=== PATIENT | male | born 1965 | race Caucasian/White ===

== ENCOUNTER → 2017-07-08 09:01 | Outpatient (CLI) | payer OTHER, SELFPAY ==
[2017-07-08 10:37] LABS: Absolute Lymphocyte Count 1.65 X10^3/ul (0.83-4.51); Absolute Neutrophil Count 2.7 X10^3/uL (2.0-7.7); Basophil# 0.06 X10^3/uL; Eosinophil# 0.83 X10^3/uL; Eosinophils% 14.1 % (0-5); Hematocrit 44.7 % (40-54); Lymphocyte # 1.65 X10^3/ul (4.0); Mean Corp Hgb Conc 33.6 g/gl (32-36); Mean Corpuscular Hgb 30.7 pg (27.0-32.0); Mean Corpuscular Volume 91.4 fL (80-94); Mean Platelet Vol. 10.6 fl (6.2-12.0); Monocyte# 0.65 X10^3/uL; Neutrophil % 45.9 % (47-70); Platelet Count 279 K/mm3 (150-450); RBC Distribution Width CV 13.9 % (11.6-14.6); RBC Distribution Width SD 46.3 fl (35.1-43.9); Red Blood Count 4.89 M/mm3 (4.6-6.2); White Blood Count 5.9 K/mm3 (4.4-11.0)
[2017-07-08 10:38] LABS: POSITIVE COUNT NO; POSITIVE DIFFERENTIAL NO; POSITIVE MORPHOLOGY NO
[2017-07-08 10:57] LABS: AST(SGOT) 16 U/L (15-37); Alanine Aminotransfer ALT/SGPT 24 U/L (16-61); Albumin, Serum 3.5 g/dL (3.2-5.0); Alkaline Phosphatase 92 U/L (45-117); Bilirubin, Direct 0.12 mg/dL (0.00-0.30); Globulin 3.9 g/dL (2.2-4.2); Protein, Total 7.4 g/dL (6.4-8.2)
[2017-07-11 03:07] LABS: QNTFERON TB Ag Minus Nil Value 0 IU/mL (.); QNTFERON TB Ag Value 0.02 IU/mL (.); QNTFERON TB Mitogen Value > 10.00 IU/mL (.); QNTFERON TB Nil Value 0.02 IU/mL (.)
[2017-07-11 11:18] LABS: QNTIFERON TB Gold Negative (Negative)
== END ==
PROVIDERS: Family Provider Family Medicine; PCP Family Medicine; Visit Provider Dermatology
DX: L40.0 Psoriasis vulgaris (principal); L40.8 Other psoriasis; Z79.899 Other long term (current) drug therapy
CPT/HCPCS: 36415; 80076; 85025; 86480

== ENCOUNTER 2017-10-17 06:54 | Day surgery (SDC) | payer OTHER, SELFPAY ==
[2017-10-17] VITALS (7 sets, daily range): BP systolic 107–159; BP diastolic 64–99; PULSE 50–57; RESP 16–18; TEMP 36.3–36.6; O2SAT 96–100; BMI 36.1
--- NOTE | 2017-10-17 07:54 | HP.PCM_ITS ---
Past Medical/Surgical History - Planned Operation Planned Operative Procedure/s: cscope Date of Operative Procedure: 10/17/17 Permit Signed: No S.O.S: No Is This Patient Having a Total Joint: No - Previous Hospitalizations/Surgeries HX Hospitalizations: No HX of Surgeries: tonsillectomy. wisdom teeth Any Problems With Anesthesia: No You/Your Family Experience Fever (Hyperthermia) With Anes: No Cholinesterase deficiency: No - Cardiovascular Hx Chest Pain within Last 2 months: No Hx of Irregular Heartbeat and/or Afib: No Hx Heart Attack: No Hx Congestive Heart Failure: No Hx Rheumatic Fever: No Hx Hypertension: Yes - controlled with meds Hx Internal Defibrillator: No Hx Pacemaker: No Hx Cardiac Catheterization: No Hx Cardiac Surgery/Stents/Etc.: No Hx Stress Test: No HX Edema: No Hx Pain in Legs when Walking/Leg Cramps: No - Respiratory Chronic Cough: No HX of Shortness of Breath: Yes - sob with 2 flights of stairs Hoarseness: No Hx Chronic Obstructive Pulmonary Disease (COPD): No Hx Asthma: No Hx Emphysema: No Hx Sleep Apnea: Yes CPAP: Yes BIPAP: No Hx Oxygen Use at Home: No Hx Respiratory Tract Infection/Cold (presently): No Result (for STOP score): Positive Hx Smoking: Yes Smoking Status: Never smoker - Gastrointestinal Hx Gastroesophageal Reflux: No Hx Gastrointestinal Disorders: No Hx Gastrointestinal Bleed: No Hx Ulcer: No Hx Hiatal Hernia: No Difficulty Chewing/Swallowing: No Recent Onset of Swallowing Problems: No Special diet followed at home: No Hx Unplanned Weight Loss of 20#: No HX Unplanned Weight Gain of 20#: No - Neurological Hx Seizures: No HX Syncope/Blackout Spells/Unconsciousness: No Hx CVA/Stroke: No Hx Transient Ischemic Attacks (TIA): No Hx Multiple Sclerosis: No Hx Parkinson's Disease: No Hx Head/Neck Injury: No Hx Headaches: No Hx Back Injury/Pain: No Recent Onset of Speech Difficulty: No Restless Legs: Yes Does patient have nerve stimulator: No Patient instructed to have device shut off: No Rep notified?: No - Blood Disorder Hx Leukemia: No Bleeding Tendencies: No Hx Deep Vein Thrombosis: No Hx High Cholesterol: No Blood Transmitted Disease: No Hx Hepatitis: No Hx Cirrhosis: No Hx Anemia: No Hx Blood Disorders: No - Genitourinary Hx Renal Disease: No Hx Dialysis: No - Musculoskeletal Hx Arthritis: No Hx Rheumatoid Arthritis: No Hx Gout: No Recent Onset of an Orthopedic Problem: No - Endocrine Hx Diabetes: No Thyroid Disease: No Hx Steroid Therapy: No - Psycho/Social Hx Substance Use: No Hx Alcohol Use: Yes - occ Hx Anxiety: Yes - on med Hx Depression: Yes - on med Mental Illness: No Hx Dementia: No - Miscellaneous Hx Cancer: No Recent Exposure to Contagious Disease: No Active MRSA: No Hx of C-Diff: No Any Loose Teeth: No Additional information pertinent to anesthesia:: psoriasis Allergies No Known Allergies Allergy (Verified 10/15/17 13:13) - Discharge Is Pt Admitted From a Halfway, or a Shelter: No Who Could Help: family After D/C, Where Do you Plan to Go: Return Home - Physical Exam General: Alert, Oriented x3, Cooperative Neck: No JVD Lungs: Normal air movement Cardiovascular: Regular rate, Regular Rhythm Abdomen: Soft, Non Tender, Non-Distended Vital Signs Temp Pulse Resp BP Pulse Ox 97.9 F 52 L 16 159/83 H 98 10/17/17 07:17 10/17/17 07:17 10/17/17 07:17 10/17/17 07:17 10/17/17 07:17 Oxygen Delivery Method Room Air Weight: 252 lb 3.341 oz Body Mass Index (BMI) 36.1 Assessment/Plan 51-year-old male for screening colonoscopy 1. Patient has never had colonoscopy in the past. He reports no abdominal pain or blood in his stool. He has no family history of colon cancer. 2. I explained endoscopy in detail to the patient. I explained the risks including but not limited to stroke or heart attack with anesthesia, perforation of the GI tract, bleeding, infection. I explained that any of these could necessitate further emergency surgery. The patient understands and all questions were answered sufficiently. The patient wishes to proceed with procedure. Luis Rodriguez MD Pager: [facility] [address] [place] [address], [address] [place] [address] Office: Surgery Risks - Colonoscopy Risks Include but are not Limited To: Risks include but are not limited to: Bleeding, perforation requiring further surgery, inability to complete colonoscopy requiring barium enema.
--- NOTE | 2017-10-17 08:18 | PCM.OPRPT ---
Problem List (1) Screen for colon cancer Status: Acute Report of Operation Date of Procedure: 10/17/17 Pre-Operative Diagnosis: Screening for colon cancer Post-Operative Diagnosis: Normal colonoscopy Surgery/Procedure Performed:: Colonoscopy Description of Procedure: The major risks and benefits associated with the procedure were explained to the patient in detail. The patient verbalized understanding and agreement with the same. The patient was brought to the endoscopy suite. After adequate sedation was achieved, the patient was placed in the left lateral decubitus position and a digital rectal exam was performed. This examination was within normal limits. A well-lubricated colonoscope was then inserted into the rectum and advanced under direct visualization to the level of the cecum. The bowel prep was good. The cecum was identified by both visual and anatomic landmarks. A photograph was taken of the end of the cecum. The scope was then fully withdrawn while examining the color, texture, anatomy and integrity of the mucosa from the cecum to the anal canal. The findings were consistent with normal colonic mucosa. Over 6 minutes were taken to examine the colonic mucosa. Upon reaching the rectum the scope was retroflexed to examine the distal rectal vault. The scope was then straightened and was completely retrieved upon exiting the anal canal and the procedure was terminated. The patient was then transferred to the recovery room in stable condition. Recommendations for follow up: 10 years
== END 2017-10-17 09:15 | disposition home or self-care (01) ==
LOC: EN 06:55 → AC 07:36
PROVIDERS: Family Provider Family Medicine; PCP Family Medicine; Visit Provider Surgery
PROC: 0DJD8ZZ Inspection of Lower Intestinal Tract, Via Natural or Artificial Opening Endoscopic (ICD-10-PCS; CPT 45378; principal; 2017-10-17 07:55)
DX: Z12.11 Encounter for screening for malignant neoplasm of colon (principal); I10 Essential (primary) hypertension; G47.30 Sleep apnea, unspecified; G25.81 Restless legs syndrome; F41.9 Anxiety disorder, unspecified; F32.9 Major depressive disorder, single episode, unspecified; Z79.82 Long term (current) use of aspirin; Z79.899 Other long term (current) drug therapy
CPT/HCPCS: 45378; J7120

== ENCOUNTER → 2018-01-10 09:31 | Outpatient (CLI) | payer OTHER, SELFPAY ==
[2018-01-10 10:06] LABS: Absolute Lymphocyte Count 1.48 X10^3/ul (0.83-4.51); Absolute Neutrophil Count 2.8 X10^3/uL (2.0-7.7); Basophil# 0.01 X10^3/uL; Basophil% 0.2 % (0-1); Eosinophil# 0.24 X10^3/uL; Eosinophils% 4.7 % (0-5); Hematocrit 39.3 % (40-54); Hemoglobin 13.3 g/dl (13.0-16.5); Lymphocyte # 1.48 X10^3/ul (4.0); Lymphocyte % 28.7 % (19-41); Mean Corp Hgb Conc 33.8 g/gl (32-36); Mean Corpuscular Hgb 31.4 pg (27.0-32.0); Mean Corpuscular Volume 92.9 fL (80-94); Mean Platelet Vol. 9.4 fl (6.2-12.0); Monocyte# 0.59 X10^3/uL; Monocyte% 11.5 % (0-10); Neutrophil # 2.83 X10^3/uL (2.7-7.7); Neutrophil % 54.9 % (47-70); Platelet Count 262 K/mm3 (150-450); RBC Distribution Width CV 14.3 % (11.6-14.6); Red Blood Count 4.23 M/mm3 (4.6-6.2); White Blood Count 5.2 K/mm3 (4.4-11.0)
[2018-01-10 10:07] LABS: POSITIVE COUNT NO; POSITIVE DIFFERENTIAL NO; POSITIVE MORPHOLOGY NO
[2018-01-10 10:26] LABS: AST(SGOT) 20 U/L (15-37); Alanine Aminotransfer ALT/SGPT 28 U/L (16-61); Albumin, Serum 3.4 g/dL (3.2-5.0); Alkaline Phosphatase 84 U/L (45-117); Bilirubin, Direct 0.15 mg/dL (0.00-0.30); Globulin 3.7 g/dL (2.2-4.2); Protein, Total 7.1 g/dL (6.4-8.2)
== END ==
PROVIDERS: Family Provider Family Medicine; PCP Family Medicine; Referring Provider Dermatology; Visit Provider Dermatology
DX: L40.8 Other psoriasis (principal); L40.0 Psoriasis vulgaris; Z79.899 Other long term (current) drug therapy; L70.2 Acne varioliformis
CPT/HCPCS: 36415; 80076; 85025

== ENCOUNTER 2018-02-26 17:45 | Outpatient (RCR) | payer OTHER, SELFPAY ==
--- NOTE | 2017-07-21 16:50 | MASS.EVAL ---
Massage Therapy Evaluation: INITIAL EVALUATION: DATE: 06/19/17 PT NAME: DANE LEMUS :67 [id number] REFERRING PHYS: DR. 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 facility for a Massotherapy evaluation by Dr. Cholo Mckeon with a diagnosis of back ache. He presents today with symptoms of stabbing pain between the shoulder blades, into the neck. He reports of the pain level at worst 8/10 and at rest a 3/10. 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 Dane rates his health to be in good condition. The patient is currently taking blood pressure, stelaria as medications. Objective: The first treatment consisted of a deep tissue upper body massage. I focused on the upper trapezium, suboccipitals, scalenes, rhomboids, and levator. Trigger point therapy, muscle stripping, myofascial release were performed. Assessment: Muscle tension was very high with no myofascial movement. The most tenderness places were the scalenes, upper trapezium, and rhomboids. I felt there was a moderate release overall. I feel that the patient has had massages in the past and has helped, therefore I feel that Dane would be a great candidate for massotherapy at this time. Plan: The plan of care was reviewed with the patient. The patient is to be seen 1x week for 2 weeks, then as needed on a regular basis for a one hour sessions of massotherapy combined with heat for relaxation and neck and shoulder stretches.
--- NOTE | 2017-07-21 17:08 | MASS.EVAL_ITS ---
Massage Therapy Evaluation: INITIAL EVALUATION: DATE: 06/19/17 PT NAME: DANE LEMUS :66 [id number] REFERRING PHYS: DR. 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 Cholo Mckeon with a diagnosis of back ache. He presents today with symptoms of stabbing pain between the shoulder blades, into the neck. He reports of the pain level at worst 8/10 and at rest a 3/10. 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 Dane rates his health to be in good condition. The patient is currently taking blood pressure, stelaria as medications. Objective: The first treatment consisted of a deep tissue upper body massage. I focused on the upper trapezium, suboccipitals, scalenes, rhomboids, and levator. Trigger point therapy, muscle stripping, myofascial release were performed. Assessment: Muscle tension was very high with no myofascial movement. The most tenderness places were the scalenes, upper trapezium, and rhomboids. I felt there was a moderate release overall. I feel that the patient has had massages in the past and has helped, therefore I feel that Dane would be a great candidate for massotherapy at this time. Plan: The plan of care was reviewed with the patient. The patient is to be seen 1x week for 2 weeks, then as needed on a regular basis for a one hour sessions of massotherapy combined with heat for relaxation and neck and shoulder stretches.
--- NOTE | 2018-03-20 12:12 | DS.PCM_ITS ---
Massage Therapy Discharge Summary: Discharge Date: 03/19/2018 Luís was seen for a massotherapy evaluation on 06/19/17 with the diagnosis of shoulder/scapular pain. He was treated with ten sessions of massage therapy consisting of deep pressure soft tissue techniques, myofascial release and trigger point compression to her cervical, thoracic, lower back, upper extremities and hips.Yoselyn responded well to the therapy by reporting decreased tension and pain throughout her head, neck, and shoulders. His goals for therapy were met throughout the treatment sessions. At this time this patient is being discharged from our care at [facility] facility.
== END 2018-02-26 19:00 | disposition home or self-care (01) ==
LOC: MASS 17:45
PROVIDERS: Family Provider Family Medicine; PCP Family Medicine; Visit Provider Family Medicine
DX: M54.9 Dorsalgia, unspecified (principal)
CPT/HCPCS: 97124

== ENCOUNTER → 2018-07-10 | Outpatient (CLI) | payer OTHER, SELFPAY ==
[2018-02-18 08:09] VITALS: BMI 39.4
[2018-07-10 13:56] LABS: Absolute Lymphocyte Count 1.63 X10^3/ul (0.83-4.51); Absolute Neutrophil Count 2.4 X10^3/uL (2.0-7.7); Basophil# 0.03 X10^3/uL; Basophil% 0.6 % (0-1); Eosinophil# 0.27 X10^3/uL; Eosinophils% 5.5 % (0-5); Hematocrit 43.7 % (40-54); Lymphocyte # 1.63 X10^3/ul (4.0); Lymphocyte % 33.5 % (19-41); Mean Corp Hgb Conc 34.3 g/gl (32-36); Mean Corpuscular Hgb 31.4 pg (27.0-32.0); Mean Corpuscular Volume 91.6 fL (80-94); Mean Platelet Vol. 9.9 fl (6.2-12.0); Monocyte# 0.58 X10^3/uL; Monocyte% 11.9 % (0-10); Neutrophil # 2.35 X10^3/uL (2.7-7.7); Neutrophil % 48.3 % (47-70); POSITIVE COUNT NO; POSITIVE DIFFERENTIAL NO; POSITIVE MORPHOLOGY NO; Platelet Count 297 K/mm3 (150-450); RBC Distribution Width CV 13.7 % (11.6-14.6); RBC Distribution Width SD 45.8 fl (35.1-43.9); Red Blood Count 4.77 M/mm3 (4.6-6.2); White Blood Count 4.9 K/mm3 (4.4-11.0)
[2018-07-10 14:28] LABS: AST(SGOT) 20 U/L (15-37); Alanine Aminotransfer ALT/SGPT 26 U/L (16-61); Albumin, Serum 3.6 g/dL (3.2-5.0); Alkaline Phosphatase 97 U/L (45-117); Bilirubin, Direct 0.13 mg/dL (0.00-0.30); Globulin 4.1 g/dL (2.2-4.2); Protein, Total 7.7 g/dL (6.4-8.2)
[2018-07-14 07:07] LABS: QNTFERON TB Mitogen Value > 10.00 IU/mL (.); QNTFERON TB Nil Value 0.02 IU/mL (.); QNTFERON TB1+ Ag Value 0.02 IU/mL (.); QNTFERON TB2+ Ag Value 0.03 IU/mL (.)
[2018-07-14 17:16] LABS: QNTIFERON TB Positive Criteria Negative (Negative)
== END | disposition home or self-care (01) ==
LOC: LAB 13:14 → LAB.FUTURE 13:15
PROVIDERS: Family Provider Family Medicine; PCP Family Medicine; Referring Provider Dermatology; Visit Provider Dermatology
DX: L40.8 Other psoriasis (principal); L40.0 Psoriasis vulgaris; Z79.899 Other long term (current) drug therapy
CPT/HCPCS: 36415; 80076; 85025; 86480

== ENCOUNTER → 2018-08-21 | Outpatient (CLI) | payer OTHER, SELFPAY ==
[2018-08-21 06:54] VITALS: BMI 39.4
[2018-08-21 15:21] LABS: Squamous Epithelial Cells - UA 0 SEEN /hpf (0-5)
[2018-08-21 15:54] LABS: Color, Urine Yellow (Yellow); Glucose, Dipstick Normal (Normal); Ketone-Dipstick Negative (Negative); Leukocyte Esterase-Dipstick 500 /ul (Negative); Nitrite-Dipstick Negative (Negative); Occult Blood-Urine 150 /ul (Negative); Protein-Dipstick Negative (Negative); Specific Gravity, Urine 1.015 (1.002-1.030); Urine Bilirubin Dipstick Negative (Negative); Urine Clarity Sl. Cloudy (Clear); Urine Urobilinogen Normal (Normal)
[2018-08-21 16:10] LABS: Red Blood Cells-Urine 10-25 SEEN /hpf (0-5); White Blood Cells 25-50 SEEN /hpf (0-5)
[2018-08-21 16:11] LABS: Bacteria 1+ /hpf (None Seen); Mucous, Urine 1+ /hpf (<or=2+)
== END | disposition home or self-care (01) ==
LOC: LABSPEC 14:48
PROVIDERS: Family Provider Family Medicine; PCP Family Medicine; Referring Provider Physician Assistant Surgical; Visit Provider Physician Assistant Surgical
DX: R30.0 Dysuria (principal)
CPT/HCPCS: 81001; 87086

== ENCOUNTER → 2018-08-24 | Outpatient (CLI) | payer OTHER, SELFPAY ==
[2018-08-21 06:54] VITALS: BMI 39.4
--- NOTE | 2018-08-24 15:31 | RAD_ITS ---
STUDY: X-RAY - ABDOMEN/PELVIS REASON FOR EXAM: Male, 52 years old. Hematuria. History of kidney stones. TECHNIQUE: Single AP view of the abdomen / pelvis. COMPARISON: None. FINDINGS: Normal visualized lung bases. There is an unremarkable bowel gas pattern. There is no demonstrated free abdominal air. The visualized liver, spleen and kidneys are grossly normal in size and morphology. There are calcified phleboliths in the pelvis. Normal visualized osseous structures. RAD/Abdomen Single View IMPRESSION: No renal stones are identified. Electronically Signed: Derik Vera MD at 17:12 EDT , Service support ,
[2018-08-24 17:27] LABS: Absolute Lymphocyte Count 1.47 X10^3/ul (0.83-4.51); Absolute Neutrophil Count 6.9 X10^3/uL (2.0-7.7); Basophil# 0.03 X10^3/uL; Basophil% 0.3 % (0-1); Eosinophil# 0.31 X10^3/uL; Eosinophils% 3.1 % (0-5); Hematocrit 43.3 % (40-54); Hemoglobin 14.9 g/dl (13.0-16.5); Lymphocyte # 1.47 X10^3/ul (4.0); Lymphocyte % 14.6 % (19-41); Mean Corp Hgb Conc 34.4 g/gl (32-36); Mean Corpuscular Hgb 31.5 pg (27.0-32.0); Mean Corpuscular Volume 91.5 fL (80-94); Mean Platelet Vol. 10.3 fl (6.2-12.0); Monocyte# 1.31 X10^3/uL; Neutrophil # 6.91 X10^3/uL (2.7-7.7); Neutrophil % 68.9 % (47-70); Platelet Count 315 K/mm3 (150-450); RBC Distribution Width CV 13.4 % (11.6-14.6); Red Blood Count 4.73 M/mm3 (4.6-6.2)
[2018-08-24 17:36] LABS: POSITIVE COUNT NO; POSITIVE DIFFERENTIAL NO; POSITIVE MORPHOLOGY NO
[2018-08-24 17:50] LABS: ALB/GLOB Ratio 0.7 RATIO (0.9-2.4); AST(SGOT) 13 U/L (15-37); Alanine Aminotransfer ALT/SGPT 28 U/L (16-61); Albumin, Serum 3.3 g/dL (3.2-5.0); Alkaline Phosphatase 110 U/L (45-117); Anion Gap 10 (5-15); BUN 15 mg/dL (7-18); BUN/Creat Ratio 15.6 RATIO (10-20); Chloride 104 mmol/L (98-107); Creatinine, Serum 0.96 mg/dL (0.70-1.30); EST Glomerular Filtration Rate 88 mL/min (>60); Est Glom Filt Rate - Afr Amer 106 mL/min (>60); Globulin 4.6 g/dL (2.2-4.2); Glucose 98 mg/dL (74-106); Potassium 3.7 mmol/L (3.5-5.1); Protein, Total 7.9 g/dL (6.4-8.2); Sodium Level 140 mmol/L (136-145)
== END | disposition home or self-care (01) ==
LOC: MTLAB 15:19
PROVIDERS: Family Provider Family Medicine; PCP Family Medicine; Referring Provider Family Medicine; Visit Provider Family Medicine
DX: R31.9 Hematuria, unspecified (principal)
CPT/HCPCS: 36415; 74018; 80053; 85025

== ENCOUNTER → 2018-08-26 | Outpatient (CLI) | payer OTHER, SELFPAY ==
[2018-08-21 06:54] VITALS: BMI 39.4
--- NOTE | 2018-08-26 16:04 | US_ITS ---
STUDY: SCROTUM ULTRASOUND REASON FOR EXAM: Male, 52 years old. Left testicular pain TECHNIQUE: Ultrasound evaluation of the scrotum was performed with color Doppler and static rogers-scale imaging. COMPARISON: None. FINDINGS: RIGHT TESTICLE INTRATESTICULAR: There is a normal size of the right testicle. The right testicle measures 4.8 x 3.1 x 2.7 cm. There is a homogenous echotexture. There is normal arterial and normal venous vascularity. There is no demonstrated right testicular mass or cyst. EXTRATESTICULAR: The epididymis is normal in size. The epididymis head measures 1.4 x 0.7 x 0.9 cm. There is normal vascularity of the epididymis. There is no demonstrated epididymal cystic structure. There is a small right hydrocele. There is no demonstrated varicocele. There is no demonstrated extratesticular mass or cyst. LEFT TESTICLE INTRATESTICULAR: There is a normal size of the left testicle. The left testicle measures 5.1 x 3.2 x 2.5 cm. There is a homogenous echotexture. There is normal arterial and normal venous vascularity. There is no demonstrated left testicular mass or cyst. EXTRATESTICULAR: The epididymis is enlarged with increased echogenicity The epididymis head measures 2.1 x 1.2 x 1.1 cm. There is increased vascularity of the epididymis. There is no demonstrated epididymal cystic structure. There is moderate left hydrocele There is no demonstrated varicocele. There is no demonstrated extratesticular mass or cyst. US/Testicular with Arterial Flow IMPRESSION: Left epididymitis with enlarged left epididymis with increased vascular flow Moderate left hydrocele Small right hydrocele Electronically Signed: Victoriano Mayorga, at 17:03 EDT Tel , Service support ,
== END | disposition home or self-care (01) ==
LOC: US 16:02
PROVIDERS: Family Provider Family Medicine; PCP Family Medicine; Referring Provider Family Medicine; Visit Provider Family Medicine
DX: N50.812 Left testicular pain (principal)
CPT/HCPCS: 76870; 93976

== ENCOUNTER → 2018-08-27 | Outpatient (CLI) | payer OTHER, SELFPAY ==
[2018-08-21 06:54] VITALS: BMI 39.4
--- NOTE | 2018-08-27 09:10 | CT_ITS ---
STUDY: CT ABDOMEN AND PELVIS WITH CONTRAST REASON FOR EXAM: Male, 52 years old. Hematuria. Testicular pain. RADIATION DOSAGE (If Supplied By Facility): CTDIvol = ( 22.27 ) mGy, DLP = ( 2581.89 ) mGycm TECHNIQUE: Transaxial images were obtained from the dome of the diaphragm to the symphysis pubis with oral contrast. 100ml IV/Oral Isovue 370 was administered. Sagittal and coronal images were reconstructed. Individualized dose optimization techniques were used for this CT. COMPARISON: Ultrasound from the same day. FINDINGS: Lung bases: Unremarkable. Heart: Unremarkable. Liver: Mild hepatic steatosis. Right hepatic lobe lesion measuring 1 cm and Hounsfield units greater than cyst (axial image 27 series 2). No additional hepatic lesions identified. Portal vein patent. Gallbladder/biliary ducts: Unremarkable. Pancreas: Mild pancreatic atrophy. Spleen: Unremarkable. Adrenal glands: Unremarkable. Genitourinary tract/scrotum: Bilateral varicoceles with increased blood flow to the left testis (axial image 129 series 2). Inflammatory changes surround the left testis. Scrotal thickening, left greater than right. Slightly underdistended urinary bladder with minimal subtle stranding. Minimal dilatation of the right proximal collecting system. Nondilated proximal, middle or distal ureters. Mild bilateral perinephric fat stranding. Possible punctate right renal stone difficult to assess given intravenous contrast evaluation (axial image 44 series 2). Tiny left hypodense renal lesion (axial image 36 series 2), statistically cyst. Large bowel/small bowel: No acute process. Appendix: Unremarkable (axial image 74 series 2). Gastroesophageal junction/stomach: Unremarkable. Retroperitoneum/lymph nodes: No intra-abdominal free air. No ascites. Shotty para-aortic lymph nodes, none of which appear pathologically enlarged. Enlarged left iliac chain lymph node measuring up to 2.6 m x 1.3 cm (axial image 100 series 2). Slightly enlarged right iliac chain lymph nodes measuring up to 1 cm x 1 cm. Slightly prominent left inguinal lymph nodes. Vascular: Trace vascular calcifications. No aneurysm. Osseous structures: No acute process. Subcutaneous/soft tissues: Small fat-containing inguinal hernias. Small fat-containing umbilical hernia. Scrotal thickening, left greater than right. CT/Abdomen/Pelvis WITH Contrast IMPRESSION: Left-sided epididymitis with hydrocele and varicocele (see dedicated ultrasound) Minimal perivesicular and perinephric fat stranding (possible infection; correlate urinalysis) Slightly enlarged lymph nodes (statistically reactive/inflammatory) Hepatic steatosis with right indeterminate hepatic lobe noncystic lesion (correlate nonemergent ultrasound or MRI follow-up) Electronically Signed: Cholo Saenz DO at 11:22 EDT Tel , Service support ,
[2018-08-27 09:27] LABS: Absolute Lymphocyte Count 1.49 X10^3/ul (0.83-4.51); Absolute Neutrophil Count 6.3 X10^3/uL (2.0-7.7); Basophil# 0.03 X10^3/uL; Basophil% 0.3 % (0-1); Eosinophil# 0.22 X10^3/uL; Eosinophils% 2.4 % (0-5); Hemoglobin 14.9 g/dl (13.0-16.5); Lymphocyte # 1.49 X10^3/ul (4.0); Lymphocyte % 16.3 % (19-41); Mean Corp Hgb Conc 34.7 g/gl (32-36); Mean Corpuscular Hgb 31.1 pg (27.0-32.0); Mean Corpuscular Volume 89.8 fL (80-94); Mean Platelet Vol. 10.1 fl (6.2-12.0); Neutrophil # 6.27 X10^3/uL (2.7-7.7); Neutrophil % 68.6 % (47-70); POSITIVE COUNT NO; POSITIVE DIFFERENTIAL NO; POSITIVE MORPHOLOGY NO; Platelet Count 317 K/mm3 (150-450); RBC Distribution Width SD 42.7 fl (35.1-43.9); Red Blood Count 4.79 M/mm3 (4.6-6.2); White Blood Count 9.2 K/mm3 (4.4-11.0)
[2018-08-27 09:55] LABS: PSA,Total- Diagnostic 7.56 ng/mL (0.0-4.0)
[2018-08-27 10:28] LABS: Color, Urine Yellow (Yellow); Glucose, Dipstick Normal (Normal); Ketone-Dipstick Negative (Negative); Leukocyte Esterase-Dipstick 500 /ul (Negative); Nitrite-Dipstick Negative (Negative); Occult Blood-Urine 10 /ul (Negative); Protein-Dipstick Negative (Negative); Urine Bilirubin Dipstick Negative (Negative); Urine Clarity Sl. Cloudy (Clear); Urine Urobilinogen Normal (Normal)
[2018-08-27 10:59] LABS: Bacteria RARE /hpf (None Seen); Mucous, Urine RARE /hpf (<or=2+); Red Blood Cells-Urine 0-5 SEEN /hpf (0-5); Squamous Epithelial Cells - UA 0-5 SEEN /hpf (0-5); White Blood Cells 5-10 SEEN /hpf (0-5)
[2018-08-27 13:42] LABS: Chlamydia Trachomatis by PCR Negative (Negative)
[2018-08-27 13:43] LABS: Probe Check PASS; Sample Adequacy Control PASS; Specimen Processing Control PASS
== END | disposition home or self-care (01) ==
LOC: CT 08:44
PROVIDERS: Family Provider Family Medicine; PCP Family Medicine; Referring Provider Family Medicine; Visit Provider Family Medicine
DX: R31.9 Hematuria, unspecified (principal); N45.1 Epididymitis
CPT/HCPCS: 36415; 74177; 81001; 84153; 85025; 87086; 87491; Q9967

== ENCOUNTER → 2018-09-22 | Outpatient (CLI) | payer OTHER, SELFPAY ==
[2018-08-21 06:54] VITALS: BMI 39.4
--- NOTE | 2018-09-22 09:42 | US_ITS ---
STUDY: ABDOMINAL ULTRASOUND - RIGHT UPPER QUADRANT REASON FOR VISIT: Male, 52 years old. Hepatic lesion. TECHNIQUE: Ultrasound evaluation of the right upper quadrant was performed with real-time and static rogers-scale imaging. TECHNICAL QUALITY: Examination limited by bowel gas. COMPARISON: CT of the abdomen and pelvis, August 27, 2018. FINDINGS: Liver: The liver measures 15.0 cm. There is normal echogenicity of the liver. The bile ducts are within normal limits. There is hepatic color flow. The direction of portal flow is hepatopetal. In the anterior right liver there is a ill-defined 2 x 2.2 x 1.5 cm echogenic focus does not have a correlate on the earlier CT. Question hemangioma. A small hypodensity seen along the posterior aspect of the right liver on the CT is not visualized sonographically. Gallbladder: Normal distended gallbladder. The gallbladder wall measures 2.6 mm. There is a negative sonographic Guevara's sign. There is no pericholecystic fluid. There are no gallstones. Common Bile Duct (C.B.D.): The common bile duct measures 3 mm. Pancreas: There is suboptimal visualization of pancreas due to bowel gas. There is normal echogenicity of the pancreas. There is no demonstrated pancreatic mass or cyst. Right Kidney: Normal size of the right kidney. The right kidney measures 12.5 cm. Normal renal cortex. The right cortex measures 2.1 cm. There is no demonstrated renal mass or cyst. There is no right hydronephrosis. US/Liver IMPRESSION: 1. Ill-defined hyperechoic focus in the right liver. Question hemangioma. This does not correlate with the posterior hypodensity seen on the CT. The lesion on CT was not visualized sonographically. 2. Limited visualization of pancreas due to bowel gas. 3. Otherwise normal right upper quadrant ultrasound. Electronically Signed: Danny Weber DO at 17:08 EDT Tel [phone], Service support ,
== END | disposition home or self-care (01) ==
LOC: US 09:40
PROVIDERS: Family Provider Family Medicine; PCP Family Medicine; Referring Provider Family Medicine; Visit Provider Family Medicine
DX: K76.9 Liver disease, unspecified (principal)
CPT/HCPCS: 76705

== ENCOUNTER → 2018-10-02 | Outpatient (CLI) | payer OTHER, SELFPAY ==
[2018-08-21 06:54] VITALS: BMI 39.4
== END | disposition home or self-care (01) ==
LOC: LABSPEC 10:52
PROVIDERS: Family Provider Family Medicine; PCP Family Medicine; Referring Provider Family Medicine; Visit Provider Family Medicine
DX: R31.9 Hematuria, unspecified (principal)
CPT/HCPCS: 87086

== ENCOUNTER → 2018-11-03 | Outpatient (CLI) | payer OTHER, SELFPAY ==
[2018-08-21 06:54] VITALS: BMI 39.4
[2018-11-03 09:04] LABS: Absolute Lymphocyte Count 1.18 X10^3/uL (0.83-4.51); Absolute Neutrophil Count 2.5 X10^3/uL (2.0-7.7); Basophil# 0.04 X10^3/uL; Basophil% 0.9 % (0-1); Eosinophil# 0.25 X10^3/uL; Eosinophils% 5.4 % (0-5); Hematocrit 42.4 % (40-54); Hemoglobin 14.4 g/dL (13.0-16.5); Lymphocyte # 1.18 X10^3/ul (4.0); Lymphocyte % 25.6 % (19-41); Mean Corpuscular Hgb 30.9 pg (27.0-32.0); Mean Platelet Vol. 10.3 fl (6.2-12.0); Monocyte# 0.64 X10^3/uL; Monocyte% 13.9 % (0-10); NRBC Flagged by Analyzer 0 % (0-5); Neutrophil # 2.48 X10^3/uL (2.7-7.7); Neutrophil % 53.8 % (47-70); Platelet Count 276 K/mm3 (150-450); RBC Distribution Width CV 13.3 % (11.6-14.6); RBC Distribution Width SD 44.2 fl (35.1-43.9); Red Blood Count 4.66 M/mm3 (4.6-6.2); White Blood Count 4.6 K/mm3 (4.4-11.0)
[2018-11-03 09:32] LABS: PSA,Total- Diagnostic 1.05 ng/mL (0.0-4.0)
== END | disposition home or self-care (01) ==
LOC: LAB 07:10
PROVIDERS: Family Provider Family Medicine; PCP Family Medicine; Referring Provider Family Medicine; Visit Provider Family Medicine
DX: R97.20 Elevated prostate specific antigen [PSA] (principal)
CPT/HCPCS: 36415; 84153; 85025

== ENCOUNTER → 2019-01-26 08:58 | Outpatient (CLI) | payer OTHER, SELFPAY ==
[2018-08-21 06:54] VITALS: BMI 39.4
[2019-01-26 10:31] LABS: Microalbumin,Random Urine 5.2 mg/L (NO RANGE EST.); Microalbumin:Creatinine Ratio 4.2 mg/g CRE (<30 mg/g CRE)
[2019-01-26 10:42] LABS: Vitamin B12 540 pg/mL (211-911)
[2019-01-26 11:00] LABS: ALB/GLOB Ratio 0.9 RATIO (0.9-2.4); AST(SGOT) 13 U/L (15-37); Alanine Aminotransfer ALT/SGPT 27 U/L (16-61); Albumin, Serum 3.6 g/dL (3.2-5.0); Alkaline Phosphatase 87 U/L (45-117); Anion Gap 6 (5-15); BUN 13 mg/dL (7-18); BUN/Creat Ratio 13.5 RATIO (10-20); Calcium,Total 9.2 mg/dL (8.5-10.1); Chloride 108 mmol/L (98-107); Cholesterol 195 mg/dL (200); Creatinine, Serum 0.96 mg/dL (0.70-1.30); EST Glomerular Filtration Rate 87 mL/min (>60); Est Glom Filt Rate - Afr Amer 105 mL/min (>60); Globulin 3.8 g/dL (2.2-4.2); Glucose 101 mg/dL (74-106); High Density Lipoprotein 39 mg/dL; Protein, Total 7.4 g/dL (6.4-8.2); Sodium Level 141 mmol/L (136-145); Thyroid Stim Hormone (TSH) 1.25 uIU/mL (0.358-3.74); Triglycerides 232 mg/dL; Very Low Density Lipoprotein 46 mg/dL (5-40)
== END ==
PROVIDERS: Family Provider Family Medicine; PCP Family Medicine; Referring Provider Family Medicine; Visit Provider Family Medicine
DX: F33.42 Major depressive disorder, recurrent, in full remission (principal); I10 Essential (primary) hypertension; R45.86 Emotional lability
CPT/HCPCS: 36415; 80053; 80061; 82043; 82570; 82607; 82746; 84443

== ENCOUNTER 2019-03-15 18:30 | Outpatient (RCR) | payer OTHER, SELFPAY ==
[2018-02-18 08:09] VITALS: BMI 39.4
--- NOTE | 2019-03-20 12:30 | DS.PCM_ITS ---
Massage Therapy Discharge Summary: DATE: 03/20/2019 V#: [id number] PT NAME: DANE LEMUS REF PHYS: DR. JIMENEZ THE PATIENT WAS SEEN FOR MASSOTHERAPY ON 04/23/2018 WITH A DIAGNOSIS OF BACK PAIN. THE PATIENT WAS TREATED WITH 9 SESSIONS OF MASSAGE CONSISTING OF UPPER BODY DEEP TISSUE MASSAGE. HIS GOALS WERE MET HE REPORTED THAT MOST MONTHS THE MASSAGE WAS ABLE TO MAINTAIN HIS TIGHTNESS AND PAIN IN HIS BACK. AT THIS TIME I AM DISCHARGING THE PATIENT FROM OUR CARE FOR THE YEAR OF 2018 AT THE [facility].
== END 2019-03-15 19:00 | disposition home or self-care (01) ==
LOC: MASS 18:30
PROVIDERS: Family Provider Family Medicine; PCP Family Medicine; Referring Provider Family Medicine; Visit Provider Family Medicine
DX: M54.9 Dorsalgia, unspecified (principal)
CPT/HCPCS: 97124

== ENCOUNTER → 2019-03-29 14:32 | Outpatient (CLI) | payer OTHER, SELFPAY ==
[2019-02-11 11:17] VITALS: BMI 37.8
--- NOTE | 2019-03-29 14:37 | RAD_ITS ---
STUDY: X-RAY - CERVICAL SPINE REASON FOR EXAM: Male, 53 years old. NO KNOWN INJURY. PAIN IN LEFT SHOULER AND IN NECK. TECHNIQUE: 5 view(s) of the cervical spine were obtained. COMPARISON: July 16, 2010 FINDINGS: Normal cervical lordosis. There is multi-level endplate spondylosis. There is slightly increased multi-level degenerative disc disease with multilevel disc space narrowing. The soft tissue structures are unremarkable. RAD/Cerv Spine 4 or 5 Views IMPRESSION: Degenerative changes of the spine. Electronically Signed: Ken Rabago MD at 11:32 EST Tel , Service support ,
--- NOTE | 2019-03-29 14:47 | RAD_ITS ---
STUDY: X-RAY - LEFT SHOULDER REASON FOR EXAM: Left shoulder and neck pain, no specific injury. TECHNIQUE: 4 view(s) of the shoulder. COMPARISON: None. FINDINGS: Normal glenohumeral articulation. Normal acromioclavicular joint. Normal acromion. Normal humeral head and visualized proximal humerus. There is a small calcification adjacent to the lesser tuberosity on the scapular Y view, possibly representing calcific tendinitis in the subscapularis tendon. Normal visualized pulmonary apex. RAD/Shoulder min 2 Views IMPRESSION: Small calcification adjacent to the lesser tuberosity, possibly representing calcific tendinitis. Electronically Signed: Juancho aMrino MD at 15:18 EST Tel , Service support ,
== END ==
PROVIDERS: Family Provider Family Medicine; PCP Family Medicine; Referring Provider Nurse Practitioner Adult Health; Visit Provider Nurse Practitioner Adult Health
DX: M54.2 Cervicalgia (principal); M25.512 Pain in left shoulder
CPT/HCPCS: 72050; 73030

== ENCOUNTER 2019-06-25 11:00 | Outpatient (RCR) | payer OTHER, SELFPAY ==
[2019-02-11 11:17] VITALS: BMI 37.8
--- NOTE | 2019-04-14 13:10 | HP.PTEVAL ---
Patient's Visit Information Sang LEMUS is a 53 year old M referred to Physical Therapy by Cholo Mckeon MD with a diagnosis of NECK AND RIGHT ARM PAIN. Date of Evaluation: 04/14/19 Physical Therapist: Juliet Shelton PT, Cert MDT - Visit Plan Frequency: 2-3x /Week Duration: 4-6 Weeks Plan: ASSESS SX'S POST STEROID. US, POSTURE CORRECTION/STRENGTHENING, INSTRUCTION IN APPROPRIATE BODY MECHANICS AND ACTIVITY MODIFICATIONS. JOSE UE ROM, STRETCHING AND STRENGTHENING. HEP INSTRUCTION. CONSIDER CERVICAL TX. - Subjective Findings: Diagnosis: R UE RAD, CERV DDD, CALC TEND L SHLD. 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 NOT MUCH TRAVEL. 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 Disability: NO. Present symptoms: SHARP NECK PAIN AND RIGHT TRAP. RIGHT ARM GOES NUMB IN ALMOST ANY POSITION FREQUENTLY TO THE HAND. LEFT SHOULDER PAIN MAINLY IN THE FRONT. Present since: LEFT SHLD STARTED 3-5 YEARS AGO. THE RIGHT ARM NUMBNESS STARTED 2-3 MONTHS AGO. CHRONIC NECK PAIN. Pain Scale: Worst - 8/10 Least - 1/10. Currently: 04/02. Commenced as a result of: NO APPARENT REASON. Symptoms at onset: NECK PAIN. LEFT SHLD IS SEPERATE. Worse: STRESS, PROLONGED STATIONARY POSTURE, ARMS UP FOR DESK/COMPUTER WORK, HEAD DOWN FOR DESK/COMPUTER WORK. Better: MASSAGE. Disturbed sleep: YES. Previous history/Previous treatment: MASSAGE THERAPY. CHIROPRACTOR OFF AND ON FOR 10 YEARS FOR NECK PAIN. LAST CHIROPRACTIC VISIT WAS 4 WEEKS AGO AND WILL GO BACK NEEDED. CHIROPRACTOR HAS HAD NE ON CURRENT SX'S. NO NECK SURGERY. NO NECK INJECTIONS. NO SHLD SX'S. Dizziness: NO. Tinnitis: NO. Nausea: NO. Shortness of Breath: NO. Difficulty Swollowing: NO. Gait: NORMAL. Accidents: NORMAL. Unexplained weight loss: NO. Imaging: NO MRI'S. NECK AND SHLD X-RAYS. SEE [facility] EMR. PMH/Recent major surgery: HTN, ANXIETY, PSORIASIS. OTHER: STATES DR. MCKEON TOLD HIM HE DIDN'T THINK HE WILL NEED THERAPY ON HIS LEFT SHOULDER AND WITH MEDICINE IT HAS GOT A LOT BETTER. STATES HIS LEFT SHLD FEELS BETTER NOW THAN IT HAS IN YEARS. STATES THE MEDICINE HAS HELPED HIS NECK PAIN BUT HIS ARM IS STILL NUMB. STARTED NEW MED'S INCLUDING STEROID (2 DAYS TO GO). - Objective Sitting Posture/Standing Posture: FORWARD HEAD. ROUNDED SHOULDERS LEFT > RIGHT. NO TORTICOLLIS. Active Correction of posture: WORSE. Other Observations: INDEP GAIT AND TRANSFERS. 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 Sensory deficit: JOSE UE LIGHT TOUCH SENSATION INTACT AND SYMMETRICAL DESPITE CONSTANT NUMBNESS REPORTED IN RIGHT UE. ROM deficit: JOSE UE ROM WFL. Reflexes: JOSE UE DTR'S. Dural Signs: POSITIVE RIGHT UE. Cervical Mvmt Loss: Flex: NIL. Pro: NIL. Ext: MOD. Ret: BERTHA. RSB: MIN. LSB: MOD. R Rot: MIN. L Rot: MIN. Postural strength: POOR. Palpation: MILD TENDERNESS WITH PALPATION OF THE RIGHT CERVICAL PARASPINALS AT ABOUT THE LEVEL OF C56. TREATMENT: NEUROMUSCULAR REEDUCATION - RETRAINING OF MVMT AND POSTURE FOR SITTING, LYING AND STANDING ACTIVITIES. - Goals Goal 1:: DECREASE C/O NECK AND JOSE UE SX'S. Goal Time Frame: 4-6 Weeks Goal 2:: IMPROVE PERSONAL CARE, LIFTING, SLEEP, WORK, DRIVING AND RECREATIONAL FUNCTION. Goal Time Frame: 4-6 Weeks Goal 3:: INSTRUCT IN PROPHYLAXIS Goal Time Frame: 4-6 Weeks - Rehabilitation Potential Rehabilitation Potential: Fair - Anticipated Interventions Patient/Client Instruction: Educate patient on: Condition, Plan of Care, Risk Factors, Benefits of Fitness Program For the Purpose of:: To improve self management Therapeutic Exercise to Include: Strength training, Endurance training, Body mechanics, Postural training, Neuromotor development, Active ROM, Scapular Strength/Stabilization For the Purpose of:: To decrease pain, To increase ROM, To improve muscle performance and motor function, To increase tolerance to activity/condition/position, To improve ability of physical actions for home/community/work/leisure Cryotherapy (ice pack, ice massage): Yes Thermo therapy (hot pack): Yes Ultrasound (thermal/non thermal): Yes Intermittent cervical traction: Yes For the Purpose of:: To decrease pain, To increase ROM, To improve nutrient delivery to tissue Thank you for the opportunity to evaluate your patient. For Medicare and Medicare HMO plans, please review the plan of care and approve it. It will need to be FAXED BACK to us at [phone] for Medicare purposes. For Medicare only, by signing this I certify the plan of care. Please let me know if there are questions or concerns regarding this plan of care. Physician Signature: Date:
--- NOTE | 2019-05-19 16:48 | HP.PTREVAL ---
Cholo Mckeon MD, It has been my pleasure to treat Sang LEMUS over the last 10 visits for NECK AND RIGHT ARM PAIN. Please see the progress note below for an update on the physical therapy plan of care! Subjective: I DON'T HAVE NEAR THE NUMBNESS OR TINGLING THAT I USE TO HAVE. PATIENT REPORTS HE STILL HAS NECK PAIN BUT IT IS VERY LOCALIZED AND IT ISN'T RADIATING ANYWHERE. NO SHOULDER PAIN. PATIENT REPORTS HE HAS NORMAL USE OF HIS ARMS AND DOESN'T NOTICE A DIFFERNCE IN STRENGTH. PATIENT REPORTS THAT WHEN HE IS STRESSED OUT THE NUMBNESS DOES COME BACK IN THE RIGHT ARM AND INTO THE FINGERS. SLEEPING GOOD NOW AND NUMBESS OF ARM ISN'T AN ISSUE AT NIGHT ANYMORE. Objective/Function: PATIENT WAS SEEN TODAY FOR RE-ASSESSMENT OF PROGRESS TOWARD THE SET PT GOALS AND THE NEED FOR FURTHER PHYSICAL THERAPY VS READINESS FOR DISCHARGE. RECOMMEND CONTINUED PT BASED ON PROGRESS MADE AND ROOM FOR FURTHER IMPROVEMENT. PATIENT STILL WITH DECREASED CERVICAL PAINFREE ROM AND INTERMITTENT RIGHT UE NUMBNESS. RIGHT POST ACUTE CARE NURSE STRENGHT TESTING PROVOKES RIGHT FINGER TINGLING TODAY. UPON EXAM TODAY: 90 LBS RIGHT POST ACUTE CARE NURSE STRENGTH AND 80 LBS RIGHT (LEFT HAND DOMINANT). Sensory deficit: JOSE UE LIGHT TOUCH SENSATION INTACT AND SYMMETRICAL DESPITE CONSTANT NUMBNESS REPORTED IN RIGHT UE. ROM deficit: JOSE UE ROM WFL. Reflexes: JOSE UE DTR'S. Dural Signs: POSITIVE RIGHT UE. Cervical Mvmt Loss: Flex: NIL. Pro: NIL. Ext: MOD. Ret: MOD. RSB: MIN. LSB: MIN. R Rot: MIN. L Rot: MIN. PATIENT DENIES PAIN WITH CERVICAL ROM TESTING ALL PLANES EXCEPT RIGHT SB. Postural strength: POOR. Palpation: MILD TENDERNESS WITH PALPATION OF THE RIGHT CERVICAL PARASPINALS AT ABOUT THE LEVEL OF C56. OTHER: PATIENT CONTINUES TO REPORT BEING UNDER A LOT OF STRESS AND STRESS AFFECTING HIS NECK AND RIGHT UE SX'S. Plan Plan: CONT PT 2X'S A WK X 3 WEEKS. CONTINUE TRACTION. US IF NEEDED. POSTURE CORRECTION/STRENGTHENING, INSTRUCTION IN APPROPRIATE BODY MECHANICS AND ACTIVITY MODIFICATIONS. JOSE UE ROM, STRETCHING AND STRENGTHENING. HEP INSTRUCTION. ADVANCE PRE TOLERATED. PATIENT AGREEABLE Goals Goal 1:: DECREASE C/O NECK AND JOSE UE SX'S. Goal Time Frame: 4-6 Weeks Goal 2:: IMPROVE PERSONAL CARE, LIFTING, SLEEP, WORK, DRIVING AND RECREATIONAL FUNCTION. Goal Time Frame: 4-6 Weeks Goal 3:: INSTRUCT IN PROPHYLAXIS Goal Time Frame: 4-6 Weeks Anticipated Interventions Patient/Client Instruction: Educate patient on: Condition, Plan of Care, Risk Factors, Benefits of Fitness Program For the Purpose of:: To improve self management Therapeutic Exercise to Include: Strength training, Endurance training, Body mechanics, Postural training, Neuromotor development, Active ROM, Scapular Strength/Stabilization For the Purpose of:: To decrease pain, To increase ROM, To improve muscle performance and motor function, To increase tolerance to activity/condition/position, To improve ability of physical actions for home/community/work/leisure Cryotherapy (ice pack, ice massage): Yes Thermo therapy (hot pack): Yes Ultrasound (thermal/non thermal): Yes Intermittent cervical traction: Yes For the Purpose of:: To decrease pain, To increase ROM, To improve nutrient delivery to tissue Please do not hesitate to contact me at [phone] by phone or if you have questions or concerns regarding this new plan of care! Sincerely, Juliet Shelton, PT, Cert MDT
--- NOTE | 2019-06-25 12:56 | HP.PTDCSUM_ITS ---
It has been my pleasure to treat Sang LEMUS referred by Cholo Mckeon MD, with the diagnosis of NECK AND RIGHT ARM PAIN for a total of 16 visit(s). Discharge Date: Please see the following information for a summary of their discharge status. Subjective: PATIENT REPORTS HE IS A LOT BETTER. ONLY MILD INTERMITTENT NECK PAIN. NO ARM SX'S. PATIENT REPORTS HE HAS BEEN ABLE TO BE VERY PHYSICALLY ACTIVE WITH OUT PAIN AT HOME LATELY. NECK Pain Intensity (Out of 10): Unrated RIGHT UE Pain Intensity (Out of 10): 0 % Improvement: 95 Objective/Function: PATIENT WAS SEEN TODAY FOR RE-ASSESSMENT OF PROGRESS TOWARD THE SET PT GOALS AND THE NEED FOR FURTHER PHYSICAL THERAPY VS READINESS FOR DISCHARGE. AT THIS POINT ALL PT GOALS HAVE BEEN MET AND PATIENT IS APPROPRIATE FOR DISCHARGE TO HOME EX PROGRAM. PATIENT IS AGREEABLE AND PLANS TO FOLLOW UP WITH HIS PHYSICIAN IN ABOUT 10 DAYS. MY ONLY CONCERN IS THE DISCOLORATION THAT OCCURES IN PATIENTS RIGHT UE INTERMITTENTLY. PATIENT DENIES INCREASED SX'S WHEN THE DISCOLORATION OCCURES AND HAS GOTTEN MUCH BETTER DESPITE THE OCCURANCE OF DISCOLORATION CONTINUING. HE PLANS TO ADDRESS THIS WITH HIS PHYSICIAN AT FOLLOW UP. 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 Sensory deficit: JOSE UE LIGHT TOUCH SENSATION INTACT AND SYMMETRICAL. ROM deficit: JOSE UE ROM WFL. Dural Signs: NEGATIVE. Cervical Mvmt Loss: Flex: NIL. Pro: NIL. Ext: MOD. Ret: MOD. RSB: MIN. LSB: MIN. R Rot: NIL. L Rot: NIL. PATIENT DENIES PAIN WITH CERVICAL ROM TESTING ALL PLANES EXCEPT RIGHT SB - MILD. Postural strength: POOR. Palpation: PATIENT IS NOT TENDER WITH PALPATION OF THE CERVICAL REGION TODAY. Goal 1:: DECREASE C/O NECK AND JOSE UE SX'S. Goal Progress: Goal Met Goal 2:: IMPROVE PERSONAL CARE, LIFTING, SLEEP, WORK, DRIVING AND RECREATIONAL FUNCTION. Goal Progress: Goal Met Goal 3:: INSTRUCT IN PROPHYLAXIS Goal Progress: Goal Met Plan: D/C TO HEP AND FOLLOW UP WITH PCP. PATIENT AGRREABLE. If there are questions or concerns regarding this patient's physical therapy, please feel free to call me at [phone]. Thank you for the referral of this patient. Sincerely, Juliet Shelton, PT, Cert MDT
== END 2019-06-25 19:00 | disposition home or self-care (01) ==
LOC: PT 11:00
PROVIDERS: PCP Family Medicine; Referring Provider Family Medicine; Visit Provider Family Medicine
DX: M54.10 Radiculopathy, site unspecified (principal); R20.2 Paresthesia of skin; M75.32 Calcific tendinitis of left shoulder; M47.812 Spondylosis without myelopathy or radiculopathy, cervical region
CPT/HCPCS: 97012; 97110; 97112; 97162; 97164; 97530

== ENCOUNTER → 2019-12-01 13:09 | Outpatient (CLI) | payer OTHER, SELFPAY ==
[2019-02-11 11:17] VITALS: BMI 37.8
[2019-12-01 15:21] LABS: Absolute Lymphocyte Count 1.45 X10^3/uL (0.83-4.51); Absolute Neutrophil Count 2.9 X10^3/uL (2.0-7.7); Basophil# 0.03 X10^3/uL; Basophil% 0.6 % (0-1); Eosinophil# 0.16 X10^3/uL; Hematocrit 43.9 % (40-54); Hemoglobin 14.8 g/dL (13.0-16.5); Lymphocyte # 1.45 X10^3/ul (4.0); Lymphocyte % 27.4 % (19-41); Mean Corp Hgb Conc 33.7 g/dL (32-36); Mean Corpuscular Hgb 31.1 pg (27.0-32.0); Mean Corpuscular Volume 92.2 fL (80-94); Mean Platelet Vol. 10.3 fl (6.2-12.0); Monocyte# 0.73 X10^3/uL; Monocyte% 13.8 % (0-10); NRBC Flagged by Analyzer 0 % (0-5); Neutrophil % 54.8 % (47-70); Platelet Count 302 K/mm3 (150-450); RBC Distribution Width SD 44.5 fl (35.1-43.9); Red Blood Count 4.76 M/mm3 (4.6-6.2); White Blood Count 5.3 K/mm3 (4.4-11.0)
[2019-12-01 15:43] LABS: BUN 13 mg/dL (7-18); Creatinine, Serum 1.06 mg/dL (0.70-1.30); Glucose 85 mg/dL (74-106)
[2019-12-01 15:44] LABS: AST(SGOT) 18 U/L (15-37); Alanine Aminotransfer ALT/SGPT 25 U/L (16-61); Albumin, Serum 3.7 g/dL (3.2-5.0); Alkaline Phosphatase 90 U/L (45-117); Anion Gap 4 (5-15); BUN/Creat Ratio 12.3 RATIO (10-20); Calcium,Total 9.1 mg/dL (8.5-10.1); Chloride 107 mmol/L (98-107); Cholesterol 189 mg/dL (200); EST Glomerular Filtration Rate 78 mL/min (>60); Est Glom Filt Rate - Afr Amer 94 mL/min (>60); Globulin 3.8 g/dL (2.2-4.2); High Density Lipoprotein 39 mg/dL; Microalbumin,Random Urine 7.2 mg/L (NO RANGE EST.); Microalbumin:Creatinine Ratio 4.1 mg/g CRE (<30 mg/g CRE); Protein, Total 7.5 g/dL (6.4-8.2); Sodium Level 140 mmol/L (136-145); Thyroid Stim Hormone (TSH) 1.03 uIU/mL (0.358-3.74); Triglycerides 205 mg/dL; Very Low Density Lipoprotein 41 mg/dL (5-40)
== END ==
PROVIDERS: PCP Family Medicine; Referring Provider Family Medicine; Visit Provider Family Medicine
DX: I10 Essential (primary) hypertension (principal)
CPT/HCPCS: 36415; 80053; 80061; 82043; 82570; 84443; 85025

== ENCOUNTER 2020-03-23 12:00 | Outpatient (RCR) | payer OTHER, SELFPAY ==
[2019-02-11 11:17] VITALS: BMI 37.8
--- NOTE | 2019-05-06 09:46 | MASS.EVAL_ITS ---
Massage Therapy Evaluation: INITIAL EVALUATION: DATE: 04/21/2019 PT NAME: VIDA LEMUS : 1965 V#: [id number] REF PHYS: DR. 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 HE WAS REFERRED TO [facility] FOR A MASSOTHERAPY EVALUATION BY DR. MYERS WITH THE DIAGNOSIS OF NECK AND SHOULDER PAIN. DANE PRESENTS TODAY WITH THE SYMPTOMS OF STIFFNESS AND PAIN IN NECK AND SHOULDERS, ALONG WITH NUMBNESS IN THE RIGHT ARM INTO THE FINGERS. HE RATES HIS PAIN AT REST A 5 OUT OF 10, AND A 10 OF 10 BEING THE WORST. THE SYMPTOMS BEGAN AROUND JANUARY OF 2019. 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 HE RATES HIS OVERALL HEALTH TO BE IN GOOD CONDITION WITH SOME LIMITATIONS IN HIS DAILY ACTIVITIES. HE IS CURRENTLY TAKING MEDICATIONS FOR BLOOD PRESSURE, PSORISIS, AND DEPRESSION. OBJECTIVE: THE FIRST TREATMENT CONSISTED OF A DEEP TISSUE UPPER BODY MASSAGE. I FOCUSED ON THE ANTERIOR AND POSTERIOR MUSCLES OF THE CERVICAL, UPPER TRAPEZIUM, LEVATOR, RHOMBOIDS, PECTORALS, INFRA AND SUPRA SPINATUS, AND TERES. TRIGGER POINT THERAPY, MYOFASCIAL RELEASE, MUSCLE STRIPPING AND NECK STRETCHES WERE PERFORMED. ASSESSMENT: UPON PALPATION, THE TENSION AND MUSCLE TISSUE WAS VERY HIGH WITH NO NATURAL MOVEMENT. THE PATIENT SEEMED TO HAVE A HARD TIME RELAXING UNTIL TOWARDS THE END OF THE HOUR. THERE WAS MODERATE RELEASE OVERALL, AND THE PATIENT REPORTED FEELING BETTER POST THE MASSAGE WITH LESS NUMBNESS IN THE RIGHT ARM AND FINGERS. I FEEL THAT DANE IS A GREAT CANDIDATE FOR MASSOTHERAPY AT THIS TIME. PLAN: THE PLAN OF CARE WAS REVIEWED WITH THE PATIENT. THE PATIENT IS TO BE SEEN ON A REGULAR BASIS FOR ONE HOUR SESSIONS.
--- NOTE | 2020-03-23 07:23 | MASS.DISCH ---
Massage Therapy Discharge Summary: DATE: 03/23/20 V#: [id number] PT NAME: DANE LEMUS : 67 REF PHYS: DR. MYERS THE PATIENT WAS SEEN FOR MASSOTHERAPY ON 04/21/19 WITH A DIAGNOSIS OF NECK AND SHOULDER PAIN. THE PATIENT WAS TREATED WITH 10 SESSIONS OF MASSAGE CONSISTING OF ONE HOUR DEEP TISSUE AND TRIGGER POINT THERAPY. HIS GOALS FOR TREATMENT WERE MET THROUGH OUT HIS THERAPY. AT THIS TIME I AM DISCHARGING THE PATIENT FROM OUR CARE AT THE [facility].
== END 2020-03-23 13:29 | disposition home or self-care (01) ==
LOC: MASS 12:00
PROVIDERS: Family Provider Family Medicine; PCP Family Medicine; Referring Provider Nurse Practitioner Adult Health; Visit Provider Nurse Practitioner Adult Health
DX: M54.2 Cervicalgia (principal); M54.5 Low back pain; M25.519 Pain in unspecified shoulder
CPT/HCPCS: 97124

== ENCOUNTER 2020-06-08 16:47 | Outpatient (RCR) | payer OTHER, SELFPAY ==
[2020-04-13 12:55] VITALS: BMI 35.6
[2020-06-08] MEDS: COVID-19 VACC, MRNA(PFIZER)/PF 30 MCG/0.3 ML SYRINGE IM (13:51)
[2020-06-29] MEDS: COVID-19 VACC, MRNA(PFIZER)/PF 30 MCG/0.3 ML SYRINGE IM (11:19)
== END 2020-06-08 23:59 ==
LOC: IMMUN 16:47
PROVIDERS: PCP Family Medicine; Visit Provider Family Medicine
DX: Z23 Encounter for immunization (principal)
CPT/HCPCS: 0001A; 0002A; 91300

== ENCOUNTER → 2020-07-03 10:57 | Outpatient (CLI) | payer OTHER, SELFPAY ==
[2020-04-13 12:55] VITALS: BMI 35.6
[2020-07-03 11:30] LABS: Absolute Lymphocyte Count 1.33 X10^3/uL (0.83-4.51); Absolute Neutrophil Count 2.7 X10^3/uL (2.0-7.7); Basophil# 0.04 X10^3/uL; Basophil% 0.8 % (0-1); Eosinophil# 0.21 X10^3/uL; Eosinophils% 4.3 % (0-5); Hematocrit 44.8 % (40-54); Hemoglobin 15.3 g/dL (13.0-16.5); Lymphocyte # 1.33 X10^3/ul (4.0); Mean Corp Hgb Conc 34.2 g/dL (32-36); Mean Corpuscular Volume 90.7 fL (80-94); Monocyte% 12.2 % (0-10); NRBC Flagged by Analyzer 0 % (0-5); Neutrophil # 2.73 X10^3/uL (2.7-7.7); Neutrophil % 55.5 % (47-70); Platelet Count 273 K/mm3 (150-450); RBC Distribution Width CV 13.4 % (11.6-14.6); RBC Distribution Width SD 44.6 fl (35.1-43.9); Red Blood Count 4.94 M/mm3 (4.6-6.2); White Blood Count 4.9 K/mm3 (4.4-11.0)
[2020-07-03 11:56] LABS: AST(SGOT) 14 U/L (15-37); Alanine Aminotransfer ALT/SGPT 26 U/L (16-61); Albumin, Serum 3.5 g/dL (3.2-5.0); Alkaline Phosphatase 87 U/L (45-117); Bilirubin, Direct 0.16 mg/dL (0.00-0.30); Globulin 3.7 g/dL (2.2-4.2); Protein, Total 7.2 g/dL (6.4-8.2)
[2020-07-08 03:07] LABS: QNTFERON TB Mitogen Value > 10.00 IU/mL (.); QNTFERON TB Nil Value 0 IU/mL (.); QNTFERON TB1+ Ag Value 0.04 IU/mL (.); QNTFERON TB2+ Ag Value 0.04 IU/mL (.)
[2020-07-08 19:52] LABS: QNTIFERON TB Positive Criteria Negative (Negative)
== END ==
PROVIDERS: PCP Family Medicine; Visit Provider Dermatology
DX: L40.8 Other psoriasis (principal); Z79.899 Other long term (current) drug therapy
CPT/HCPCS: 36415; 80076; 85025; 86480

== ENCOUNTER → 2020-08-02 12:12 | Outpatient (CLI) | payer OTHER, SELFPAY ==
[2020-04-13 12:55] VITALS: BMI 35.6
[2020-08-02 13:37] LABS: Microalbumin,Random Urine 6.1 mg/L (NO RANGE EST.); Microalbumin:Creatinine Ratio 4.4 mg/g CRE (<30 mg/g CRE)
[2020-08-02 13:51] LABS: AST(SGOT) 18 U/L (15-37); Alanine Aminotransfer ALT/SGPT 23 U/L (16-61); Albumin, Serum 3.5 g/dL (3.2-5.0); Alkaline Phosphatase 90 U/L (45-117); Anion Gap 3 (5-15); BUN 12 mg/dL (7-18); BUN/Creat Ratio 13.2 RATIO (10-20); Calcium,Total 8.8 mg/dL (8.5-10.1); Chloride 110 mmol/L (98-107); Creatinine, Serum 0.91 mg/dL (0.70-1.30); EST Glomerular Filtration Rate 93 mL/min (>60); Est Glom Filt Rate - Afr Amer 112 mL/min (>60); Globulin 3.6 g/dL (2.2-4.2); Glucose 91 mg/dL (74-106); Potassium 3.9 mmol/L (3.5-5.1); Protein, Total 7.1 g/dL (6.4-8.2); Sodium Level 139 mmol/L (136-145)
== END ==
PROVIDERS: PCP Family Medicine; Referring Provider Family Medicine; Visit Provider Family Medicine
DX: I10 Essential (primary) hypertension (principal)
CPT/HCPCS: 36415; 80053; 82043; 82570

== ENCOUNTER 2020-09-21 11:00 | Outpatient (RCR) | payer OTHER, SELFPAY ==
[2020-04-13 12:55] VITALS: BMI 35.6
--- NOTE | 2020-08-28 11:55 | HP.PTEVAL_ITS ---
Patient's Visit Information Sang LEMUS is a 54 year old M referred to Physical Therapy by Dr. Cholo Mckeon MD with a diagnosis of CERVICAL DDD WITH RADICULOPATHY. Date of Evaluation: 08/28/20 Physical Therapist: Juliet Shelton PT, Cert MDT - Visit Plan Frequency: 2x /Week Duration: 4-6 Weeks Plan: CERVICAL TRACTION. POSTURE CORRECTION/STRENGTHENING, INSTRUCTION IN APPROPRIATE BODY MECHANICS AND ACTIVITY MODIFICATIONS. JOSE UE ROM, STRETCHING AND STRENGTHENING. HEP INSTRUCTION. RE-INTRODUCE THE FOLLOWING NEEDED: REP RET IN SITTING. REP RET IN LYING. SCAP SQUEEZES. DEEP NECK FLEXOR LIFT. PRONE W'S. UE WALL SLIDES. PRONE ROWS. UE TBAND WALL WALKS. ANTERIOR/MIDDLE SCALENE STRETCH. UPPER TRAP STRETCH. LEVATOR SCAPULAE STRETCH. 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 STANDING ALL NIGHT. 2ND SHIFT. SPENDS A LOT OF TIME LOOKING DOWN OR WAY UP AT WORK. Present symptoms: RIGHT LOWER NECK PAIN. INTERMITTENT RIGHT UE PAIN, NUMBESS AND TINGLING DOWN TO R RING FINGER BUT NOT BAD WHEN HE WAS HERE FOR PT ABOUT 18 MONTHS AGO. Present since: YEARS. Pain Scale: Worst - 10/10 Least - /10. Currently: 04/02. Commenced as a result of: FLARED UP ABOUT 2 MONTHS AGO FOR NO APPARENT REASON OTHER THAN POSSIBLY SLEEPING ON IT WRONG OR WORK. Symptoms at onset: RIGHT NECK PAIN. Worse: LOOKING UP, PROLONGED LOOKING DOWN, BOUNCING ON LIFT TRUCK. Better: REST AND TIME. Disturbed sleep: IT WAS BUT ABLE TO SLEEP NOW. Previous history/Previous treatment: PT INCLUDING TRACTION. NO NECK SURGERY. NO NORBERTO'S. HAS NOT SEEN A FRONT DESK HOST. This episode: PCP VISIT. TRIED MASSAGE AND CHIROPRACTOR BUT MADE IT WORSE. Dizziness: ONCE IN AWHILE. Tinnitis: YES. Nausea: NOT ANYMORE. Shortness of Breath: NO. Difficulty Swollowing: NO. Gait: NORMAL. Accidents: NO. Unexplained weight loss: NO. Imaging: NONE RECENT. OTHER: PATIENT REPORTS HE THINKS WITH HIS NEW JOB HE THINKS SOME TRACTION MIGHT HELP. STATES HE FELT THERAPY LAST EPISODE OF CARE WAS VERY SUCCESSFUL. - Objective Sitting Posture/Standing Posture: JULIA. Active Correction of posture: BETTER. Other Observations: INDEP GAIT AND TRANSFERS. Motor deficit: L HANDED WITH LEFT NETBACKUP ENGINEER OF 83 LBS AND RIGHT 52 LBS. RIGHT UE GROSSLY 4/5 COMPARED TO 5/5 LEFT UE. Sensory deficit: JOSE UE LIGHT TOUCH SENSATION APPEARS INTACT ANS SYMMETRICAL. ROM deficit: JOSE UE'S WFL. Reflexes: JOSE UE'S 2/3. Dural Signs: POSITIVE R UE. Cervical Mvmt Loss: Flex: NIL. Pro: NIL. Ext: MIN. Ret: MOD. RSB: MOD. LSB: MOD. R Rot: MIN. L Rot: MIN. PATIENT C/O INCREASED NECK PAIN WITH ROM TESTING INTO EXT, FLEX AND R ROT. Postural strength: FAIR. Palpation: TREATMENT: NEUROMUSCULAR REEDUCATION - RETRAINING OF MVMT AND POSTURE FOR SITTING, LYING AND STANDING ACTIVITIES. - Goals Goal 1:: DECREASE C/O NECK AND RIGHT UE SX'S. Goal Time Frame: 4-6 Weeks Goal 2:: IMPROVE LOOKING UP, LOOKING DOWN, WORK, PERSONAL CARE, LIFTING, SITTING, SLEEP AND RECREATIONAL FUNCTION. Goal Time Frame: 4-6 Weeks Goal 3:: INSTRUCT IN PROPHYLAXIS Goal Time Frame: 4-6 Weeks - Anticipated Interventions Patient/Client Instruction: Educate patient on: Condition, Plan of Care, Risk Factors For the Purpose of:: To improve self management Therapeutic Exercise to Include: Strength training, Body mechanics, Postural training, Flexibilty training, Neuromotor development, Scapular Strength/Stabilization For the Purpose of:: To decrease pain, To increase ROM, To improve muscle performance and motor function, To increase tolerance to activity/condition/position, To improve ability of physical actions for home/community/work/leisure Thank you for the opportunity to evaluate your patient. For Medicare and Medicare HMO plans, please review the plan of care and approve it. It will need to be FAXED BACK to us at [phone] for Medicare purposes. For Medicare only, by signing this I certify the plan of care. Please let me know if there are questions or concerns regarding this plan of care. Physician Signature: Date:
--- NOTE | 2020-09-21 14:13 | HP.PTDCSUM ---
It has been my pleasure to treat Sang LEMUS referred by Dr. Cholo Mckeon MD, with the diagnosis of CERVICAL DDD WITH RADICULOPATHY for a total of 8 visit(s). Discharge Date: Please see the following information for a summary of their discharge status. Subjective: PATIENT REPORTS HE IS DOING MUCH BETTER AND THERAPY IS REALLY HELPING. REPORTS COMPLIANCE WITH HEP. NECK Pain Intensity (Out of 10): Unrated % Improvement: 70 Objective/Function: PATIENT SX FREE UPON DEPARTURE. INDEP WITH HEP. ALL GOALS MET. Goal 1:: DECREASE C/O NECK AND RIGHT UE SX'S. Goal Progress: Goal Met Goal 2:: IMPROVE LOOKING UP, LOOKING DOWN, WORK, PERSONAL CARE, LIFTING, SITTING, SLEEP AND RECREATIONAL FUNCTION. Goal Progress: Goal Met Goal 3:: INSTRUCT IN PROPHYLAXIS Goal Progress: Goal Met Plan: D/C TO HEP If there are questions or concerns regarding this patient's physical therapy, please feel free to call me at [phone]. Thank you for the referral of this patient. Sincerely, Juliet Shelton, PT, Cert MDT
== END 2020-09-21 19:00 | disposition home or self-care (01) ==
LOC: PT 11:00
PROVIDERS: PCP Family Medicine; Referring Provider Family Medicine; Visit Provider Family Medicine
DX: M50.10 Cervical disc disorder with radiculopathy, unspecified cervical region (principal)
CPT/HCPCS: 97012; 97110; 97112; 97162; 97530

== ENCOUNTER → 2020-10-24 10:26 | Outpatient (CLI) | payer OTHER, SELFPAY ==
[2020-04-13 12:55] VITALS: BMI 35.6
[2020-10-24 10:30] LABS: Lyme Ab Screen Interpretation REF LAB
[2020-10-24 12:02] LABS: Absolute Lymphocyte Count 1.67 X10^3/uL (0.83-4.51); Absolute Neutrophil Count 2.8 X10^3/uL (2.0-7.7); Basophil# 0.04 X10^3/uL; Basophil% 0.7 % (0-1); Eosinophil# 0.24 X10^3/uL; Eosinophils% 4.4 % (0-5); Hematocrit 44.2 % (40-54); Lymphocyte # 1.67 X10^3/ul (0.83-4.51); Lymphocyte % 30.5 % (19-41); Mean Corp Hgb Conc 33.9 g/dL (32-36); Mean Corpuscular Hgb 30.8 pg (27.0-32.0); Mean Corpuscular Volume 90.8 fL (80-94); Mean Platelet Vol. 9.9 fl (6.2-12.0); Monocyte# 0.67 X10^3/uL; Monocyte% 12.2 % (0-10); NRBC Flagged by Analyzer 0 % (0-5); Neutrophil # 2.84 X10^3/uL (2.7-7.7); Platelet Count 272 K/mm3 (150-450); RBC Distribution Width CV 12.8 % (11.6-14.6); RBC Distribution Width SD 42.8 fl (35.1-43.9); Red Blood Count 4.87 M/mm3 (4.6-6.2); White Blood Count 5.5 K/mm3 (4.4-11.0)
[2020-10-24 12:20] LABS: AST(SGOT) 18 U/L (15-37); Alanine Aminotransfer ALT/SGPT 23 U/L (16-61); Albumin, Serum 3.7 g/dL (3.2-5.0); Alkaline Phosphatase 82 U/L (45-117); Anion Gap 5 (5-15); BUN 15 mg/dL (7-18); BUN/Creat Ratio 15.9 RATIO (10-20); Calcium,Total 9.2 mg/dL (8.5-10.1); Chloride 105 mmol/L (98-107); Creatinine, Serum 0.94 mg/dL (0.70-1.30); EST Glomerular Filtration Rate 89 mL/min (>60); Est Glom Filt Rate - Afr Amer 107 mL/min (>60); Globulin 3.7 g/dL (2.2-4.2); Glucose 88 mg/dL (74-106); Potassium 3.7 mmol/L (3.5-5.1); Protein, Total 7.4 g/dL (6.4-8.2); Sodium Level 138 mmol/L (136-145)
[2020-10-24 12:32] LABS: Syphilis Antibodies Non-reactive
[2020-10-25 21:27] LABS: Lyme Scn Total Ab w/Rflx <0.91 ISR (0.00-0.90)
== END ==
PROVIDERS: PCP Family Medicine; Referring Provider Family Medicine; Visit Provider Family Medicine
DX: R29.810 Facial weakness (principal)
CPT/HCPCS: 36415; 80053; 85025; 86618; 86780

== ENCOUNTER → 2020-10-31 15:45 | Outpatient (CLI) | payer OTHER, SELFPAY ==
[2020-04-13 12:55] VITALS: BMI 35.6
--- NOTE | 2020-10-31 15:46 | MRI_ITS ---
STUDY: MRI BRAIN WITHOUT CONTRAST (ATTENTION INTERNAL AUDITORY CANALS - I.A.C.''s) REASON FOR EXAM: Male, 54 years old. right facial weakness - forehead and lower face, YEAGER TECHNIQUE: Standardized multiplanar fat and water weighted pulse sequences were obtained. COMPARISON: None. FINDINGS: Normal bilateral temporal bones. Normal bilateral internal auditory canals. There is no demonstrated intracanalicular or cisternal vestibular schwannoma (acoustic neuroma). There is no enhancement of the bilateral VIIth or VIIIth cranial nerves. Normal bilateral cochlea, vestibules and semicircular canals. The visualized aspects of the 4th through 6th cranial nerves are normal. Normal size of the ventricles and extra-axial spaces for the patient''s age. There are a limited number of small white matter hyperintensities, distributed throughout the deep white matter tracts of the cerebral hemispheres, consistent with mild chronic white matter ischemic changes. There is no evidence for recent intracranial ischemia or other cause of cytotoxic edema on diffusion weighted imaging (DWI). Normal T2* images of the brain without demonstrated susceptibility artifact. There is no demonstrated hemosiderin stain. There are no demyelinating plagues of the supratentorial brain, brainstem or cerebellum. There are no findings suspicious for multiple sclerosis (MS). No hydrocephalus is seen. Normal bilateral basal ganglia. Normal thalami. Normal flow voids within the major intracranial circulation suggesting patency by spin echo criteria. There is no extra-axial fluid accumulation. Normal sella turcica, pituitary gland, infundibular stalk, optic chiasm and hypothalamus. Normal tectal plate and pineal gland. Normal midbrain, gentry and medulla. Normal cerebellum. Normal basal cisterns. No demonstrated orbital abnormality, within the constraints of a routine brain study. Normal visualized paranasal sinuses. Normal calvarium and skull base. Normal visualized soft tissue structures. Normal visualized upper cervical spine. MRI/Brain without Contrast IMPRESSION: 1. Minimal chronic ischemic changes of the white matter. 2. No acute infarct or intracranial hemorrhage 3. Normal MRI bilateral internal auditory canals (I.A.C''s) and surrounding cranial nerves. Electronically Signed: Ariel Lara MD at 20:52 EDT , Service support ,
--- NOTE | 2020-10-31 15:50 | RAD_ITS ---
STUDY: X-RAY - ORBITS REASON FOR EXAM: Male, 54 years old. H/O FB TECHNIQUE: 2 view(s) of the orbits were obtained. COMPARISON: None. FINDINGS: Normal bilateral orbits without a metallic orbital foreign body. Normal visualized facial bones. Normal paranasal sinuses. The soft tissue structures are unremarkable. RAD/Orbits for Foreign Body IMPRESSION: No demonstrated metallic orbital foreign body. The patient is cleared for an MRI examination. Electronically Signed: Ariel Lara MD at 17:05 EDT , Service support ,
== END ==
PROVIDERS: PCP Family Medicine; Referring Provider Family Medicine; Visit Provider Family Medicine
DX: R29.810 Facial weakness (principal)
CPT/HCPCS: 70030; 70551

== ENCOUNTER → 2020-11-28 13:48 | Outpatient (CLI) | payer OTHER, SELFPAY | PROVIDERS: PCP Family Medicine; Referring Provider Family Medicine; Visit Provider Family Medicine | DX: D84.9 Immunodeficiency, unspecified (principal) | CPT/HCPCS: 36415; 86769 ==

== ENCOUNTER → 2021-02-05 10:56 | Outpatient (CLI) | payer OTHER, SELFPAY ==
[2021-02-05 12:29] LABS: Absolute Neutrophil Count 3.1 X10^3/uL (2.0-7.7); Basophil# 0.03 X10^3/uL; Basophil% 0.5 % (0-1); Eosinophil# 0.22 X10^3/uL; Eosinophils% 3.8 % (0-5); Hematocrit 42.4 % (40-54); Hemoglobin 14.9 g/dL (13.0-16.5); Mean Corp Hgb Conc 35.1 g/dL (32-36); Mean Corpuscular Hgb 31.9 pg (27.0-32.0); Mean Corpuscular Volume 90.8 fL (80-94); Mean Platelet Vol. 9.8 fl (6.2-12.0); Monocyte# 0.76 X10^3/uL; Monocyte% 13.3 % (0-10); NRBC Flagged by Analyzer 0 % (0-5); Neutrophil % 54.2 % (47-70); Platelet Count 300 K/mm3 (150-450); RBC Distribution Width CV 12.7 % (11.6-14.6); RBC Distribution Width SD 42.4 fl (35.1-43.9); Red Blood Count 4.67 M/mm3 (4.6-6.2); White Blood Count 5.7 K/mm3 (4.4-11.0)
[2021-02-05 13:20] LABS: ALB/GLOB Ratio 0.9 RATIO (0.9-2.4); AST(SGOT) 18 U/L (15-37); Alanine Aminotransfer ALT/SGPT 24 U/L (16-61); Albumin, Serum 3.3 g/dL (3.2-5.0); Alkaline Phosphatase 84 U/L (45-117); Anion Gap 6 (5-15); BUN 14 mg/dL (7-18); BUN/Creat Ratio 13.6 RATIO (10-20); Calcium,Total 8.7 mg/dL (8.5-10.1); Chloride 107 mmol/L (98-107); Cholesterol 166 mg/dL (200); Creatinine, Serum 1.03 mg/dL (0.70-1.30); EST Glomerular Filtration Rate 80 mL/min (>60); Est Glom Filt Rate - Afr Amer 97 mL/min (>60); Globulin 3.7 g/dL (2.2-4.2); Glucose 90 mg/dL (74-106); High Density Lipoprotein 47 mg/dL; Potassium 3.5 mmol/L (3.5-5.1); Sodium Level 140 mmol/L (136-145); Thyroid Stim Hormone (TSH) 1.25 uIU/mL (0.358-3.74); Triglycerides 174 mg/dL; Very Low Density Lipoprotein 35 mg/dL (5-40)
== END ==
PROVIDERS: PCP Family Medicine; Referring Provider Family Medicine; Visit Provider Family Medicine
DX: Z00.00 Encounter for general adult medical examination without abnormal findings (principal); L40.9 Psoriasis, unspecified; E66.9 Obesity, unspecified; Z68.33 Body mass index [BMI] 33.0-33.9, adult; F33.42 Major depressive disorder, recurrent, in full remission
CPT/HCPCS: 36415; 80053; 80061; 84443; 85025

== ENCOUNTER → 2021-08-10 | Outpatient (CLI) | payer BC, SELFPAY ==
--- NOTE | 2021-08-10 10:00 | RAD_ITS ---
STUDY: X-RAY - CERVICAL SPINE REASON FOR EXAM: Male, 55 years old. PARESTHESIA TECHNIQUE: 7 view(s) of the cervical spine were obtained including oblique views and flexion and extension views.. COMPARISON: Comparison is made with prior study dated 11/28/2019. FINDINGS: Normal anterior atlantoaxial articulation. Normal odontoid process. Normal cervical lordosis. Moderate degree of disc space narrowing at the C5-C6 level. Normal disc space heights. Normal visualized intervertebral neuroforamina. The soft tissue structures are unremarkable. RAD/Cerv Spine Obl/Flex/Ext Comp IMPRESSION: Moderate degree of disc space narrowing at the C5-C6 level. Electronically Signed: David Myrick MD at 13:08 EDT ,
[2021-08-10 12:20] LABS: Absolute Lymphocyte Count 1.39 X10^3/uL (0.83-4.51); Absolute Neutrophil Count 1.9 X10^3/uL (2.0-7.7); Basophil# 0.03 X10^3/uL; Basophil% 0.7 % (0-1); Eosinophils% 6.9 % (0-5); Hematocrit 41.7 % (40-54); Hemoglobin 14.2 g/dL (13.0-16.5); Lymphocyte # 1.39 X10^3/ul (0.83-4.51); Lymphocyte % 32.1 % (19-41); Mean Corp Hgb Conc 34.1 g/dL (32-36); Mean Corpuscular Hgb 30.9 pg (27.0-32.0); Mean Corpuscular Volume 90.8 fL (80-94); Mean Platelet Vol. 10.3 fl (6.2-12.0); Monocyte# 0.65 X10^3/uL; NRBC Flagged by Analyzer 0 % (0-5); Neutrophil # 1.94 X10^3/uL (2.7-7.7); Neutrophil % 44.8 % (47-70); Platelet Count 256 K/mm3 (150-450); RBC Distribution Width SD 43.1 fl (35.1-43.9); Red Blood Count 4.59 M/mm3 (4.6-6.2); White Blood Count 4.3 K/mm3 (4.4-11.0)
[2021-08-10 12:40] LABS: PTHIN 91.6 pg/mL (18.4-80.1)
[2021-08-10 12:49] LABS: Vitamin B12 627 pg/mL (211-911)
[2021-08-10 12:57] LABS: ALB/GLOB Ratio 1.2 RATIO (0.9-2.4); AST(SGOT) 21 U/L (15-37); Alanine Aminotransfer ALT/SGPT 29 U/L (16-61); Albumin, Serum 3.6 g/dL (3.2-5.0); Alkaline Phosphatase 84 U/L (45-117); Anion Gap 6 (5-15); BUN 17 mg/dL (7-18); BUN/Creat Ratio 15.9 RATIO (10-20); CRP < 2.90 mg/L (0.0-3.0); Calcium,Total 8.7 mg/dL (8.5-10.1); Chloride 107 mmol/L (98-107); Creatinine, Serum 1.07 mg/dL (0.70-1.30); EST Glomerular Filtration Rate 76 mL/min (>60); Est Glom Filt Rate - Afr Amer 92 mL/min (>60); Globulin 3.1 g/dL (2.2-4.2); Glucose 92 mg/dL (74-106); Potassium 3.9 mmol/L (3.5-5.1); Protein, Total 6.7 g/dL (6.4-8.2); Sodium Level 140 mmol/L (136-145); Thyroid Stim Hormone (TSH) 1.72 uIU/mL (0.358-3.74)
[2021-08-10 13:04] LABS: Microalbumin,Random Urine 6.6 mg/L (NO RANGE EST.); Microalbumin:Creatinine Ratio 3.8 mg/g CRE (<30 mg/g CRE)
[2021-08-11 20:00] LABS: ANTINUCLEAR ANTIBODIES DIRECT Negative (Negative)
== END | disposition home or self-care (01) ==
PROVIDERS: PCP Family Medicine; Referring Provider Family Medicine; Visit Provider Family Medicine
DX: R20.2 Paresthesia of skin (principal)
CPT/HCPCS: 36415; 72052; 80053; 82043; 82570; 82607; 82746; 83970; 84165; 84166; 84443; 85025; 86038; 86140

== ENCOUNTER → 2021-08-13 | Outpatient (CLI) | payer BC, SELFPAY ==
[2021-08-15 13:08] LABS: PROELU- Albumin, Urine 17.3 % (.); PROELU- Alpha-1-Globulin,Ur 1.7 % (.); PROELU- Alpha-2-Globulin,Ur 14.3 % (.); PROELU- Gamma Globulin, Ur 26.6 % (.); Total Protein, Ur 8.6 mg/dL (Not Estab.)
== END | disposition home or self-care (01) ==
LOC: MFPLAB 10:49
PROVIDERS: PCP Family Medicine; Visit Provider Family Medicine
DX: R20.2 Paresthesia of skin (principal)
CPT/HCPCS: 84166

== ENCOUNTER 2021-11-15 14:30 | Outpatient (RCR) | payer BC, SELFPAY ==
--- NOTE | 2021-10-04 14:59 | HP.PTEVAL_ITS ---
Patient's Visit Information Sang LEMUS is a 55 year old M referred to Physical Therapy by Dr. Cholo Mckeon MD with a diagnosis of Parasthesis. Date of Evaluation: 10/04/21 Physical Therapist: Debi Sy DPT - Visit Plan Frequency: 2x /Week Duration: 4 Weeks Plan: CERVICAL TRACTION. POSTURE CORRECTION/STRENGTHENING, INSTRUCTION IN APPROPRIATE BODY MECHANICS AND ACTIVITY MODIFICATIONS. JOSE UE ROM, STRETCHING AND STRENGTHENING. HEP INSTRUCTION: REP RET IN SITTING. REP RET IN LYING. SCAP SQUEEZES. DEEP NECK FLEXOR LIFT. - Subjective Patient reports that he has numbness in bilateral arms/hands. He has had this for a few months. He has no pain and has good motion. He has had x-rays which showed narrowing of the spine. Has not had an MRI until he has had PT. When he had PT last time about a year ago he was able to be pain free and decreased N/T. He has numbness throughout the whole limb bilaterally. They are both the same at this point. The N/T is all the time. It can get worse but he doesn't have anything specific that makes it worse. The only thing he knows makes it worse is arms over head. Eases: making adjustments to his position. No consistent pattern. Goes from the shoulder to the fingers. No YEAGER, blurred vision, dizziness. He does have some lightheadedness but unsure if its related- if he is looking down and then goes up. 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 Has had PT but no chiro or massage therapy. Sleep: disturbed- hard to roll over when his arm is numb- side and belly sleeper- CPAP machine. 40% of the time he is numb. If he is sleeping it can be much more but doesn't know exact percent. Does notice it more when he is laying down. Work: [employer]- lifting up to 70-80% of time. He had mechanical traction and exercise last time in PT and it really helped. He does not have a home traction unit. PMHx: none Meds: does take some but he is unsure of the names of them. - Objective Posture: fair throughout in sitting and standing- able to correct to good but does not maintain. Gait: no deviation- good arm swing and trunk rotation. Observation: good movement patterns with all transfers. ROM: WFL in all planes of the cervical and upper extremities without pain- overhead flexion of bilateral shoulders increases N/T. Sensation: WNL to gross touch bilateral UE. Strength: Scap: fair plus, Cervical: 4+/5 Shoulder: 5/5, Elbow: 5/5, Wrist: 5/5 Field Kiln Burner: 90lbs of force bilaterally in 3 trials. Special Test: Distraction: diminished s/s Spurlings: positive - Balance/Special Test Scores Oswestry Neck Score: 3 - Goals Goal 1:: Patient will be I with HEP and progression Goal Time Frame: 4-6 Weeks Goal 2:: Patient will report no radicular s/s for 1 week Goal Time Frame: 4-6 Weeks Goal 3:: Patient will maintain proper posture t/o tx session to demo increased scap s/s. Goal Time Frame: 4-6 Weeks - Rehabilitation Potential Physical Therapy Diagnosis: Patient presents with hypomobility- he has increased N/T throughout bilateral UE. Rehabilitation Potential: Fair - Anticipated Interventions Patient/Client Instruction: Educate patient on: Benefits of Fitness Program Therapeutic Exercise to Include: Strength training, Endurance training, Balance training, Coordination, Agility training, Body mechanics, Postural training, Flexibilty training, Neuromotor development, Dynamic Lumbar Stabilization, S capular Strength/Stabilization For the Purpose of:: To improve muscle performance and motor function TENS: Yes Cryotherapy (ice pack, ice massage): Yes Thermo therapy (hot pack): Yes Ultrasound (thermal/non thermal): Yes Intermittent cervical traction: Yes Thank you for the opportunity to evaluate your patient. For Medicare and Medicare HMO plans, please review the plan of care and approve it. It will need to be FAXED BACK to us at [phone] for Medicare purposes. For Medicare only, by signing this I certify the plan of care. Please let me know if there are questions or concerns regarding this plan of care. Physician Signature: Date:
--- NOTE | 2021-11-15 15:02 | HP.PTDCSUM_ITS ---
It has been my pleasure to treat Sang LEMUS referred by Dr. Cholo Mckeon MD, with the diagnosis of Parasthesis for a total of 8 visit(s). Discharge Date: Please see the following information for a summary of their discharge status. Subjective: Patient reports with strength and ROM he is doing great- if he is lifting heavy items his neck really bothers him. Any lifting overhead his neck hurts. Any thing he does with his arms at shoulder height his hands are numb. laying in bed his arms go numb- side and belly sleeper. % Improvement: 0 Objective/Function: Posture: fair throughout in sitting and standing- able to correct to good but does not maintain. Gait: no deviation- good arm swing and trunk rotation. Observation: good movement patterns with all transfers. ROM: WFL in all planes of the cervical and upper extremities without pain- overhead flexion of bilateral shoulders increases N/T. Sensation: WNL to gross touch bilateral UE. Strength: Scap: fair plus, Cervical: 4+/5 Shoulder: 5/5, Elbow: 5/5, Wrist: 5/5 Licensed Massage Therapist: 90lbs of force bilaterally in 3 trials. Special Test: Distraction: diminished s/s Spurlings: positive Goal 1:: Patient will be I with HEP and progression Goal Progress: Goal Met Goal 2:: Patient will report no radicular s/s for 1 week Goal Progress: Not Progressing Goal 3:: Patient will maintain proper posture t/o tx session to demo increased scap s/s. Goal Progress: Not Progressing Plan: Discharge to [facility] and return to MD for further evaluation as no significant changes since IE. If there are questions or concerns regarding this patient's physical therapy, please feel free to call me at [phone]. Thank you for the referral of this patient. Sincerely, Debi Sy, DPT Balance/Gait/Functional tests - Balance/Special Test Scores Oswestry Neck Score: 6
== END 2021-11-15 19:00 | disposition home or self-care (01) ==
LOC: PT 14:30
PROVIDERS: PCP Family Medicine; Referring Provider Family Medicine; Visit Provider Family Medicine
DX: R20.2 Paresthesia of skin (principal)
CPT/HCPCS: 97012; 97140; 97162; 97164; 97530

== ENCOUNTER → 2021-12-10 | Outpatient (CLI) | payer BC, SELFPAY ==
--- NOTE | 2021-12-10 07:30 | MRI_ITS ---
HISTORY: Paresthesia of bilateral arms. TECHNIQUE: Multiplanar and multisequence MR images of the cervical spine were obtained without contrast. 261 images. COMPARISON: XR 08/10/2021. FINDINGS: VERTEBRAE: Vertebral body heights maintained. Mild degenerative endplate changes C4-5 and C5-6. No significant bone marrow signal abnormality. VERTEBRAL ALIGNMENT: No anterior or posterior subluxation. Straightening of the cervical lordosis. SPINAL CORD: Cervical cord signal and morphology within normal limits. SOFT TISSUES: No prevertebral fluid collection. INTERVERTEBRAL DISCS: C2-3, C3-4: No significant posterior disc protrusion, central canal stenosis, or foraminal narrowing. C4-5: Mild posterior disc bulge osteophyte complex with uncovertebral and facet arthropathy resulting in mild central canal stenosis and bilateral foraminal narrowing. C5-6: Moderate posterior disc bulge aspect complex with uncovertebral and facet arthropathy resulting in moderate central canal stenosis and bilateral foraminal narrowing. C6-7: Minimal posterior disc protrusion without significant central canal stenosis or foraminal narrowing. C7-T1: No significant posterior disc protrusion or central canal stenosis. Degenerative changes of the posterior elements with mild bilateral foraminal narrowing. MRI/Spine Cervical (Routine) IMPRESSION: Multilevel degenerative disc disease with mild spinal canal stenosis at C4-5 and moderate spinal canal stenosis at C5-6 as above. Electronically Signed: Ashley Cloud MD at 16:42 EDT ,
== END | disposition home or self-care (01) ==
PROVIDERS: PCP Family Medicine; Visit Provider Family Medicine
DX: R20.2 Paresthesia of skin (principal)
CPT/HCPCS: 72141

== ENCOUNTER → 2022-05-01 | Outpatient (CLI) | payer BC, SELFPAY ==
[2022-05-01 10:12] LABS: Absolute Lymphocyte Count 1.72 X10^3/uL (0.83-4.51); Absolute Neutrophil Count 1.9 X10^3/uL (2.0-7.7); Basophil# 0.05 X10^3/uL; Eosinophil# 0.39 X10^3/uL; Eosinophils% 8.2 % (0-5); Hematocrit 43.1 % (40-54); Hemoglobin 14.9 g/dL (13.0-16.5); Lymphocyte # 1.72 X10^3/ul (0.83-4.51); Mean Corp Hgb Conc 34.6 g/dL (32-36); Mean Corpuscular Volume 89.8 fL (80-94); Mean Platelet Vol. 9.6 fl (6.2-12.0); Monocyte# 0.68 X10^3/uL; Monocyte% 14.2 % (0-10); NRBC Flagged by Analyzer 0 % (0-5); Neutrophil # 1.92 X10^3/uL (2.7-7.7); Neutrophil % 40.2 % (47-70); Platelet Count 309 K/mm3 (150-450); RBC Distribution Width CV 12.8 % (11.6-14.6); RBC Distribution Width SD 42.1 fl (35.1-43.9); White Blood Count 4.8 K/mm3 (4.4-11.0)
[2022-05-01 10:39] LABS: Microalbumin,Random Urine 6.1 mg/L (NO RANGE EST.)
[2022-05-01 10:55] LABS: ALB/GLOB Ratio 0.9 RATIO (0.9-2.4); AST(SGOT) 20 U/L (15-37); Alanine Aminotransfer ALT/SGPT 38 U/L (16-61); Albumin, Serum 3.6 g/dL (3.2-5.0); Alkaline Phosphatase 96 U/L (45-117); Anion Gap 6 (5-15); BUN 20 mg/dL (7-18); BUN/Creat Ratio 18.7 RATIO (10-20); Calcium,Total 9.4 mg/dL (8.5-10.1); Chloride 108 mmol/L (98-107); Cholesterol 231 mg/dL (200); Creatinine, Serum 1.07 mg/dL (0.70-1.30); EST Glomerular Filtration Rate 76 mL/min (>60); Est Glom Filt Rate - Afr Amer 92 mL/min (>60); Globulin 3.9 g/dL (2.2-4.2); Glucose 100 mg/dL (74-106); High Density Lipoprotein 41 mg/dL; Potassium 4.2 mmol/L (3.5-5.1); Protein, Total 7.5 g/dL (6.4-8.2); Sodium Level 140 mmol/L (136-145); Thyroid Stim Hormone (TSH) 2.27 uIU/mL (0.358-3.74); Triglycerides 290 mg/dL; Very Low Density Lipoprotein 58 mg/dL (5-40)
== END | disposition home or self-care (01) ==
PROVIDERS: PCP Family Medicine; Referring Provider Family Medicine; Visit Provider Family Medicine
DX: Z00.00 Encounter for general adult medical examination without abnormal findings (principal)
CPT/HCPCS: 36415; 80053; 80061; 82043; 82570; 84443; 85025

== ENCOUNTER → 2022-08-07 | Outpatient (CLI) | payer BC, SELFPAY ==
[2022-08-07 15:20] LABS: Absolute Lymphocyte Count 1.61 X10^3/uL (0.83-4.51); Absolute Neutrophil Count 2.3 X10^3/uL (2.0-7.7); Basophil# 0.06 X10^3/uL; Basophil% 1.2 % (0-1); Eosinophil# 0.52 X10^3/uL; Eosinophils% 10.1 % (0-5); Hematocrit 40.2 % (40-54); Hemoglobin 13.9 g/dL (13.0-16.5); Lymphocyte # 1.61 X10^3/ul (0.83-4.51); Lymphocyte % 31.3 % (19-41); Mean Corp Hgb Conc 34.6 g/dL (32-36); Mean Corpuscular Hgb 31.6 pg (27.0-32.0); Mean Corpuscular Volume 91.4 fL (80-94); Mean Platelet Vol. 10.2 fl (6.2-12.0); Monocyte# 0.63 X10^3/uL; Monocyte% 12.2 % (0-10); NRBC Flagged by Analyzer 0 % (0-5); Neutrophil # 2.32 X10^3/uL (2.7-7.7); Platelet Count 296 K/mm3 (150-450); RBC Distribution Width SD 43.8 fl (35.1-43.9); White Blood Count 5.2 K/mm3 (4.4-11.0)
[2022-08-07 15:58] LABS: AST(SGOT) 20 U/L (15-37); Alanine Aminotransfer ALT/SGPT 31 U/L (16-61); Albumin, Serum 3.7 g/dL (3.2-5.0); Alkaline Phosphatase 92 U/L (45-117); Bilirubin, Direct 0.15 mg/dL (0.00-0.30); Cholesterol 214 mg/dL (200); Globulin 3.9 g/dL (2.2-4.2); High Density Lipoprotein 43 mg/dL; Protein, Total 7.6 g/dL (6.4-8.2); Triglycerides 181 mg/dL; Very Low Density Lipoprotein 36 mg/dL (5-40)
[2022-08-09 15:08] LABS: QNTFERON TB Mitogen Value > 10.00 IU/mL (.); QNTFERON TB Nil Value 0.01 IU/mL (.); QNTFERON TB1+ Ag Value 0.06 IU/mL (.); QNTFERON TB2+ Ag Value 0.02 IU/mL (.); QNTIFERON TB Positive Criteria Negative (Negative)
== END | disposition home or self-care (01) ==
LOC: MTLAB 11:36
PROVIDERS: PCP Family Medicine; Referring Provider Dermatology; Visit Provider Dermatology
DX: Z79.899 Other long term (current) drug therapy (principal); L40.8 Other psoriasis; E78.1 Pure hyperglyceridemia
CPT/HCPCS: 36415; 80061; 80076; 85025; 86480

== ENCOUNTER → 2023-06-19 | Outpatient (CLI) | payer BC, SELFPAY ==
[2023-06-19 16:23] LABS: Absolute Lymphocyte Count 2.01 X10^3/uL (0.83-4.51); Absolute Neutrophil Count 3.3 X10^3/uL (2.0-7.7); Basophil# 0.04 X10^3/uL; Basophil% 0.6 % (0-1); Eosinophil# 0.25 X10^3/uL; Eosinophils% 3.8 % (0-5); Hematocrit 40.8 % (40-54); Hemoglobin 13.7 g/dL (13.0-16.5); Lymphocyte # 2.01 X10^3/ul (0.83-4.51); Lymphocyte % 30.4 % (19-41); Mean Corp Hgb Conc 33.6 g/dL (32-36); Mean Corpuscular Hgb 30.2 pg (27.0-32.0); Mean Corpuscular Volume 90.1 fL (80-94); Mean Platelet Vol. 9.9 fl (6.2-12.0); Monocyte# 0.95 X10^3/uL; Monocyte% 14.4 % (0-10); NRBC Flagged by Analyzer 0 % (0-5); Neutrophil # 3.33 X10^3/uL (2.7-7.7); Neutrophil % 50.3 % (47-70); Platelet Count 304 K/mm3 (150-450); RBC Distribution Width CV 13.2 % (11.6-14.6); RBC Distribution Width SD 43.3 fl (35.1-43.9); Red Blood Count 4.53 M/mm3 (4.6-6.2); White Blood Count 6.6 K/mm3 (4.4-11.0)
[2023-06-19 16:58] LABS: AST(SGOT) 26 U/L (15-37); Alanine Aminotransfer ALT/SGPT 31 U/L (16-61)
[2023-06-21 08:10] LABS: QNTFERON TB Mitogen Value > 10.00 IU/mL (.); QNTFERON TB Nil Value 0.01 IU/mL (.); QNTFERON TB1+ Ag Value 0.02 IU/mL (.); QNTFERON TB2+ Ag Value 0.07 IU/mL (.); QNTIFERON TB Positive Criteria Negative (Negative)
== END | disposition home or self-care (01) ==
LOC: LAB 15:48
PROVIDERS: PCP Family Medicine; Referring Provider Dermatology; Visit Provider Dermatology
DX: Z79.899 Other long term (current) drug therapy (principal)
CPT/HCPCS: 36415; 84450; 84460; 85025; 86480

== ENCOUNTER → 2023-12-01 | Outpatient (CLI) | payer BC, SELFPAY ==
[2023-12-01 12:16] LABS: Absolute Neutrophil Count 2.5 X10^3/uL (2.0-7.7); Basophil# 0.04 X10^3/uL; Basophil% 0.8 % (0-1); Eosinophil# 0.23 X10^3/uL; Eosinophils% 4.6 % (0-5); Hematocrit 44.9 % (40-54); Hemoglobin 15.1 g/dL (13.0-16.5); Lymphocyte % 30.2 % (19-41); Mean Corp Hgb Conc 33.6 g/dL (32-36); Mean Corpuscular Hgb 30.9 pg (27.0-32.0); Monocyte# 0.72 X10^3/uL; Monocyte% 14.5 % (0-10); NRBC Flagged by Analyzer 0 % (0-5); Neutrophil # 2.46 X10^3/uL (2.7-7.7); Neutrophil % 49.7 % (47-70); Platelet Count 307 K/mm3 (150-450); RBC Distribution Width CV 12.9 % (11.6-14.6); RBC Distribution Width SD 43.9 fl (35.1-43.9); Red Blood Count 4.88 M/mm3 (4.6-6.2)
[2023-12-01 12:58] LABS: ALB/GLOB Ratio 0.9 RATIO (0.9-2.4); AST(SGOT) 31 U/L (15-37); Alanine Aminotransfer ALT/SGPT 29 U/L (16-61); Albumin, Serum 3.6 g/dL (3.2-5.0); Alkaline Phosphatase 98 U/L (45-117); Anion Gap 8 (5-15); BUN 24 mg/dL (7-18); BUN/Creat Ratio 22.4 RATIO (10-20); Calcium,Total 9.6 mg/dL (8.5-10.1); Chloride 106 mmol/L (98-107); Cholesterol 198 mg/dL (200); Creatinine, Serum 1.07 mg/dL (0.70-1.30); EST Glomerular Filtration Rate 76 mL/min (>60); Est Glom Filt Rate - Afr Amer 92 mL/min (>60); Globulin 3.9 g/dL (2.2-4.2); Glucose 98 mg/dL (74-106); High Density Lipoprotein 39 mg/dL; Potassium 4.2 mmol/L (3.5-5.1); Protein, Total 7.5 g/dL (6.4-8.2); Sodium Level 140 mmol/L (136-145); Triglycerides 182 mg/dL; Very Low Density Lipoprotein 36 mg/dL (5-40)
[2023-12-01 13:01] LABS: Microalbumin,Random Urine 9.1 mg/L (NO RANGE EST.)
== END | disposition home or self-care (01) ==
PROVIDERS: PCP Family Medicine; Referring Provider Family Medicine; Visit Provider Family Medicine
DX: I10 Essential (primary) hypertension (principal); R53.83 Other fatigue; E78.1 Pure hyperglyceridemia; G47.33 Obstructive sleep apnea (adult) (pediatric)
CPT/HCPCS: 36415; 80053; 80061; 82043; 82570; 84443; 85025

== ENCOUNTER → 2024-09-03 | Outpatient (CLI) | payer BC, SELFPAY ==
[2024-09-03 15:21] LABS: Absolute Lymphocyte Count 1.75 X10^3/uL (0.83-4.51); Absolute Neutrophil Count 2.5 X10^3/uL (2.0-7.7); Basophil# 0.04 X10^3/uL; Basophil% 0.8 % (0-1); Eosinophil# 0.25 X10^3/uL; Eosinophils% 4.9 % (0-5); Hematocrit 44.4 % (40-54); Hemoglobin 15.1 g/dL (13.0-16.5); Lymphocyte # 1.75 X10^3/ul (0.83-4.51); Mean Corpuscular Volume 91.2 fL (80-94); Mean Platelet Vol. 10.2 fl (6.2-12.0); Monocyte# 0.56 X10^3/uL; Monocyte% 10.9 % (0-10); NRBC Flagged by Analyzer 0 % (0-5); Neutrophil # 2.53 X10^3/uL (2.7-7.7); Neutrophil % 49.2 % (47-70); Platelet Count 274 K/mm3 (150-450); RBC Distribution Width CV 12.7 % (11.6-14.6); RBC Distribution Width SD 42.5 fl (35.1-43.9); Red Blood Count 4.87 M/mm3 (4.6-6.2); White Blood Count 5.1 K/mm3 (4.4-11.0)
[2024-09-03 17:17] LABS: AST(SGOT) 24 U/L (<=37); Alanine Aminotransfer ALT/SGPT 24 U/L (<=46); Alkaline Phosphatase 88 U/L (40-129); Bilirubin, Direct 0.24 mg/dL (0.00-0.30); Globulin 2.9 g/dL (2.2-4.2); Total Bilirubin 0.62 mg/dL (0.00-1.30)
[2024-09-06 17:08] LABS: QNTFERON TB Mitogen Value > 10.00 IU/mL (.); QNTFERON TB Nil Value 0.04 IU/mL (.); QNTFERON TB1+ Ag Value 0.05 IU/mL (.); QNTFERON TB2+ Ag Value 0.04 IU/mL (.); QNTIFERON TB Positive Criteria Negative (Negative)
== END | disposition home or self-care (01) ==
PROVIDERS: PCP Family Medicine; Referring Provider Nurse Practitioner Family; Visit Provider Nurse Practitioner Family
DX: L40.8 Other psoriasis (principal); Z79.899 Other long term (current) drug therapy
CPT/HCPCS: 36415; 80076; 85025; 86480

== ENCOUNTER → 2025-01-26 | Outpatient (CLI) | payer BC, SELFPAY ==
[2025-01-26 11:12] LABS: Mucous, Urine 0 SEEN /hpf (<or=2+); Red Blood Cells-Urine 0 SEEN /hpf (0-5)
[2025-01-26 12:30] LABS: Color, Urine Yellow (Yellow); Glucose, Dipstick Normal (Normal); Ketone-Dipstick Negative (Negative); Leukocyte Esterase-Dipstick 25 /ul (Negative); Nitrite-Dipstick Negative (Negative); Occult Blood-Urine Negative /ul (Negative); Protein-Dipstick Negative (Negative); Specific Gravity, Urine 1.010 (1.002-1.030); Urine Bilirubin Dipstick Negative (Negative)
[2025-01-26 12:51] LABS: Squamous Epithelial Cells - UA 0-5 SEEN /hpf (0-5)
[2025-01-26 12:54] LABS: Creatinine, Urine (random) 55.50 mg/dL (39.00-259.00); Microalbumin,Random Urine < 12.0 mg/L (<20 mg/L)
[2025-01-26 15:21] LABS: Hematocrit 38.9 % (40-54); Hemoglobin 13.7 g/dL (13.0-16.5); Immature Granulocytes Count 0.010 X10^3/uL (0.0-0.0); Mean Corp Hgb Conc 35.2 g/dL (32-36); Mean Corpuscular Volume 90.0 fL (80-94); Mean Platelet Vol. 10.1 fl (6.2-12.0); NRBC Flagged by Analyzer 0 % (0-5); Platelet Count 304 K/mm3 (150-450); RBC Distribution Width CV 12.9 % (11.6-14.6); RBC Distribution Width SD 42.5 fl (35.1-43.9); Red Blood Count 4.32 M/mm3 (4.6-6.2); White Blood Count 3.9 K/mm3 (4.4-11.0)
[2025-01-26 15:56] LABS: AST(SGOT) 22 U/L (<=37); Alanine Aminotransfer ALT/SGPT 18 U/L (<=46); Albumin, Serum 4.1 g/dL (3.5-5.0); Alkaline Phosphatase 80 U/L (40-129); Anion Gap 10 (5-15); BUN 14 mg/dL (4-19); BUN/Creat Ratio 14.1 RATIO (10-20); Calcium,Total 9.7 mg/dL (7.6-11.0); Carbon Dioxide 24.3 mmol/L (21.0-32.0); Chloride 104 mmol/L (98-108); Globulin 2.9 g/dL (2.2-4.2); Glucose 100 mg/dL (70-99); Potassium 4.3 mmol/L (3.3-5.1)
[2025-01-28 09:08] LABS: ANTINUCLEAR ANTIBODIES DIRECT Negative (Negative)
== END | disposition home or self-care (01) ==
LOC: MTLAB 11:02
PROVIDERS: PCP Family Medicine; Referring Provider Family Medicine; Visit Provider Family Medicine
DX: I10 Essential (primary) hypertension (principal); R53.83 Other fatigue
CPT/HCPCS: 36415; 80053; 81001; 82043; 82570; 83036; 84165; 84443; 85025; 86038; 86617